=== PATIENT | male | born 1935 | race Caucasian/White ===

== ENCOUNTER 2024-08-21 07:41 | Inpatient (IN) | payer MEDICARE ==
--- NOTE | 2024-08-21 08:11 | ED ---
General Adult HPI - General Chief complaint: Nausea/Vomiting/Diarrhea Stated complaint: NV Time Seen by Provider: 08/21/24 07:46 Source: patient, EMS, RN notes reviewed Mode of arrival: EMS Limitations: no limitations - History of Present Illness Initial comments: 88-year-old male presents emergency department with chief complaint of nausea vomiting cough congestion. States that he just feels really weak rundown. Patient states this started after eating something and and he states he did drink some alcohol at that time. Patient denies any chest pain or palpitations denies any history of A-fib denies any localized abdominal pain states it is more when he coughs, it seems to bring some stuff up. - Related Data Home Medications Medication Instructions Recorded Confirmed Albuterol Inhaler [Ventolin Hfa 1 puff INHALATION RT-Q4H PRN 08/21/24 08/21/24 Inhaler] Aspirin [Cherry Aspirin EC] 81 mg PO DAILY 08/21/24 08/21/24 Atorvastatin [Lipitor] 40 mg PO DAILY@1200 08/21/24 08/21/24 Budesonide/Formoterol Fumarate 2 puff INHALATION RT-DAILY 08/21/24 08/21/24 [Symbicort 160-4.5 Mcg Inhaler] Docusate [Colace] 100 mg PO BID 08/21/24 08/21/24 Ferrous Sulfate [Feosol] 325 mg PO DAILY@1200 08/21/24 08/21/24 Gabapentin [Neurontin] 100 mg PO BID 08/21/24 08/21/24 Ketoconazole 2% Shampoo [Nizoral] 1 applic TOPICAL Q7D 08/21/24 08/21/24 Pantoprazole [Protonix] 40 mg PO DAILY 08/21/24 08/21/24 Triamcinolone 0.1% Cream [Kenalog 1 applicatio TOPICAL DIRECTED 08/21/24 08/21/24 0.1% Cream] PRN Urea Cream 40% 1 applic TOPICAL DAILY PRN 08/21/24 08/21/24 methocarbamoL [Robaxin] 500 mg PO BID 08/21/24 08/21/24 Allergies Allergy/AdvReac Type Severity Reaction Status Date / Time No Known Allergies Allergy Verified 08/21/24 10:16 Review of Systems ROS Statement: Those systems with pertinent positive or pertinent negative responses have been documented in the HPI. ROS Other: All systems not noted in ROS Statement are negative. Past Medical History Past Medical History: COPD, Dementia Additional Past Medical History / Comment(s): PAD, anemia History of Any Multi-Drug Resistant Organisms: None Reported Additional Past Surgical History / Comment(s): Right above the knee amputation Past Psychological History: No Psychological Hx Reported Smoking Status: Former smoker Past Alcohol Use History: Daily Past Drug Use History: None Reported General Exam Limitations: no limitations General appearance: alert, in no apparent distress Head exam: Present: atraumatic, normocephalic, normal inspection Eye exam: Present: normal appearance, PERRL, EOMI. Absent: scleral icterus, conjunctival injection, periorbital swelling ENT exam: Present: normal exam, mucous membranes moist Neck exam: Present: normal inspection. Absent: tenderness, meningismus, lymphadenopathy Respiratory exam: Present: normal lung sounds bilaterally. Absent: respiratory distress, wheezes, rales, rhonchi, stridor Cardiovascular Exam: Present: tachycardia, irregular rhythm, normal heart sounds. Absent: systolic murmur, diastolic murmur, rubs, gallop, clicks GI/Abdominal exam: Present: soft, normal bowel sounds. Absent: distended, tenderness, guarding, rebound, rigid Neurological exam: Present: alert Course Vital Signs 08/21/24 08/21/24 08/21/24 07:43 08:29 09:06 Temperature 97.3 F L Pulse Rate 137 H 120 H 130 H Respiratory 18 18 20 Rate Blood Pressure 102/87 106/87 127/96 O2 Sat by Pulse 94 L 96 95 Oximetry 08/21/24 09:16 Temperature Pulse Rate 84 Respiratory 20 Rate Blood Pressure 109/78 O2 Sat by Pulse 94 L Oximetry EKG Findings - EKG Comments: EKG Findings:: EKG performed at 8: 06 A-fib with RVR rate of 138 QRS 85 QT/QTc 293/374 - EKG Results: EKG: interpreted by JAMIL Medical Decision Making - Medical Decision Making Was pt. sent in by a medical professional or institution (, PA, PSYCHIATRIC NURSING AIDE, urgent care, hospital, or senior care...) When possible be specific @ -No Did you speak to anyone other than the patient for history (EMS, parent, family, police, friend...)? What history was obtained from this source @ -No Did you review nursing and triage notes (agree or disagree)? Why? @ -I reviewed and agree with nursing and triage notes Were old charts reviewed (outside hosp., previous admission, EMS record, old EKG, old radiological studies, urgent care reports/EKG's, senior care records)? Report findings @ -No old charts were reviewed Differential Diagnosis (chest pain, altered mental status, abdominal pain women, abdominal pain men, vaginal bleeding, weakness, fever, dyspnea, syncope, headache, dizziness, GI bleed, back pain, seizure, CVA, palpatations, mental health, musculoskeletal)? @ -Differential Dyspnea: Coronary syndrome, arrhythmia, tamponade, asthma, COPD, pulmonary embolism, pneumonia, pneumothorax, pulmonary effusion, anaphylaxis, diabetic ketoacidosis, flailed chest, pulmonary contusion, diaphragmatic rupture, anemia, neuromuscular, this is not meant to be an all-inclusive list. EKG interpreted by me (3pts min.). @ -As above X-rays interpreted by me (1pt min.). @ -Chest x-ray shows bilateral infiltrates and pleural effusion CT interpreted by me (1pt min.). @ -None done U/S interpreted by me (1pt. min.). @ -None done What testing was considered but not performed or refused? (CT, X-rays, U/S, labs )? Why? @ -None What meds were considered but not given or refused? Why? @ -None Did you discuss the management of the patient with other professionals (professionals i.e. , PA, PSYCHIATRIC NURSING AIDE, lab, RT, psych nurse, drug abuse social worker, quality auditor, teacher, psychological operations officer, piano case and bench assembler)? Give summary @ -Dr. Burris for admission Was smoking cessation discussed for >3mins.? @ -No Was critical care preformed (if so, how long)? @ -35 minutes Were there social determinants of health that impacted care today? How? (Ho melessness, low income, unemployed, alcoholism, drug addiction, transportation, low edu. Level, literacy, decrease access to med. care, usp, rehab)? @ -No Was there de-escalation of care discussed even if they declined (Discuss DNR or withdrawal of care, Hospice)? DNR status @ -No What co-morbidities impacted this encounter? (DM, HTN, Smoking, COPD, CAD, Cancer, CVA, ARF, Chemo, Hep., AIDS, mental health diagnosis, sleep apnea, morbid obesity)? @ -COPD Was patient admitted / discharged? Hospital course, mention meds given and route, prescriptions, significant lab abnormalities, going to OR and other pertinent info. @ -Admitted patient's found to be in A-fib RVR upon arrival patient was started on Cardizem, heparin. Patient heart rate is improving. He has bilateral pneumonia, bilateral pleural effusions. Patient will be admitted for IV antibiotics, cardiology evaluation. Undiagnosed new problem with uncertain prognosis? @ -No Drug Therapy requiring intensive monitoring for toxicity (Heparin, Nitro, Insulin, Cardizem)? @ -Cardizem, heparin Were any procedures done? @ -No Diagnosis/symptom? @ -Bilateral pneumonia, pleural effusion, A-fib RVR new onset Acute, or Chronic, or Acute on Chronic? @ -Acute Uncomplicated (without systemic symptoms) or Complicated (systemic symptoms)? @ -Complicated Side effects of treatment? @ -No Exacerbation, Progression, or Severe Exacerbation? @ -No Poses a threat to life or bodily function? How? (Chest pain, [place], [place], pneumonia, PE, COPD, DKA, ARF, appy, cholecystitis, CVA, Diverticulitis, Homicidal, Suicidal, threat to staff... and all critical care pts) @ -Yes pneumonia, pleural effusion, may lead to respiratory failure - Lab Data Result diagrams: 08/21/24 08:12 08/21/24 08:12 Lab Results 08/21/24 08/21/24 08/21/24 Range/Units 08:12 08:12 08:12 WBC 10.5 (3.8-10.6) k/uL RBC 5.55 (4.30-5.90) m/uL Hgb 15.9 (13.0-17.5) gm/dL Hct 52.4 (39.0-53.0) % MCV 94.4 (80.0-100.0) fL MCH 28.7 (25.0-35.0) pg MCHC 30.4 L (31.0-37.0) g/dL RDW 15.3 (11.5-15.5) % Plt Count 283 (150-450) k/uL MPV 7.0 Neutrophils % 91 % Lymphocytes % 3 % Monocytes % 4 % Eosinophils % 1 % Basophils % 0 % Neutrophils # 9.5 H (1.3-7.7) k/uL Lymphocytes # 0.4 L (1.0-4.8) k/uL Monocytes # 0.4 (0-1.0) k/uL Eosinophils # 0.1 (0-0.7) k/uL Basophils # 0.0 (0-0.2) k/uL Hypochromasia Marked PT 12.1 (10.0-12.5) sec INR 1.1 (<1.2) APTT 22.1 (22.0-30.0) sec Sodium 141 (137-145) mmol/L Potassium 4.3 (3.5-5.1) mmol/L Chloride 103 (98-107) mmol/L Carbon Dioxide 29 (22-30) mmol/L Anion Gap 9 mmol/L BUN 15 (9-20) mg/dL Creatinine 1.03 (0.66-1.25) mg/dL Est GFR (CKD-EPI)AfAm 75 (>60 ml/min/1.73 sqM) Est GFR (CKD-EPI)NonAf 65 (>60 ml/min/1.73 sqM) Glucose 124 H (74-99) mg/dL Calcium 9.8 (8.4-10.2) mg/dL Magnesium 1.9 (1.6-2.3) mg/dL Total Bilirubin 0.6 (0.2-1.3) mg/dL AST 22 (17-59) U/L ALT 12 (4-49) U/L Alkaline Phosphatase 133 H (38-126) U/L Troponin I (0.000-0.034) ng/mL Total Protein 6.6 (6.3-8.2) g/dL Albumin 3.9 (3.5-5.0) g/dL Lipase 123 (23-300) U/L Influenza Type A (PCR) (Not Detectd) Influenza Type B (PCR) (Not Detectd) RSV (PCR) (Not Detectd) SARS-CoV-2 (PCR) (Not Detectd) 08/21/24 08/21/24 Range/Units 08:12 08:12 WBC (3.8-10.6) k/uL RBC (4.30-5.90) m/uL Hgb (13.0-17.5) gm/dL Hct (39.0-53.0) % MCV (80.0-100.0) fL MCH (25.0-35.0) pg MCHC (31.0-37.0) g/dL RDW (11.5-15.5) % Plt Count (150-450) k/uL MPV Neutrophils % % Lymphocytes % % Monocytes % % Eosinophils % % Basophils % % Neutrophils # (1.3-7.7) k/uL Lymphocytes # (1.0-4.8) k/uL Monocytes # (0-1.0) k/uL Eosinophils # (0-0.7) k/uL Basophils # (0-0.2) k/uL Hypochromasia PT (10.0-12.5) sec INR (<1.2) APTT (22.0-30.0) sec Sodium (137-145) mmol/L Potassium (3.5-5.1) mmol/L Chloride (98-107) mmol/L Carbon Dioxide (22-30) mmol/L Anion Gap mmol/L BUN (9-20) mg/dL Creatinine (0.66-1.25) mg/dL Est GFR (CKD-EPI)AfAm (>60 ml/min/1.73 sqM) Est GFR (CKD-EPI)NonAf (>60 ml/min/1.73 sqM) Glucose (74-99) mg/dL Calcium (8.4-10.2) mg/dL Magnesium (1.6-2.3) mg/dL Total Bilirubin (0.2-1.3) mg/dL AST (17-59) U/L ALT (4-49) U/L Alkaline Phosphatase (38-126) U/L Troponin I <0.012 (0.000-0.034) ng/mL Total Protein (6.3-8.2) g/dL Albumin (3.5-5.0) g/dL Lipase (23-300) U/L Influenza Type A (PCR) Not Detected (Not Detectd) Influenza Type B (PCR) Not Detected (Not Detectd) RSV (PCR) Not Detected (Not Detectd) SARS-CoV-2 (PCR) Not Detected (Not Detectd) Critical Care Time Critical Care Time: Yes Total Critical Care Time: 35 Disposition Clinical Impression: New onset a-fib, Atrial fibrillation with RVR, Pneumonia, Pleural effusion Disposition: ADMITTED IP TO THIS HOSP Condition: Poor Referrals: None,Stated [Primary Care Provider] - 1-2 days Time of Disposition: 10:29
[2024-08-21 08:22] LABS: Basophils % (A) 0 %; Eosinophils # (A) 0.1 k/uL (0-0.7); Eosinophils % (A) 1 %; HCT 52.4 % (39.0-53.0); HGB 15.9 gm/dL (13.0-17.5); Hypochromasia Marked; Lymphocytes # (A) 0.4 k/uL (1.0-4.8); Lymphocytes % (A) 3 %; MCH 28.7 pg (25.0-35.0); MCHC 30.4 g/dL (31.0-37.0); MCV 94.4 fL (80.0-100.0); Monocytes # (A) 0.4 k/uL (0-1.0); Monocytes % (A) 4 %; Neutrophils # (A) 9.5 k/uL (1.3-7.7); Neutrophils % (A) 91 %; Platelet Count 283 k/uL (150-450); RBC 5.55 m/uL (4.30-5.90); RDW 15.3 % (11.5-15.5); WBC 10.5 k/uL (3.8-10.6)
[2024-08-21] MEDS: SODIUM CHLORIDE 0.9% 1,000 ML IV STA (08:28)
[2024-08-21 08:35] LABS: ALT 12 U/L (4-49); AST 22 U/L (17-59); African American GFR (CKD) 75 (>60 ml/min/1.73 sqM); Albumin 3.9 g/dL (3.5-5.0); Alkaline Phosphatase 133 U/L (38-126); Anion Gap 9 mmol/L; Blood Urea Nitrogen 15 mg/dL (9-20); Calcium 9.8 mg/dL (8.4-10.2); Carbon Dioxide 29 mmol/L (22-30); Chloride 103 mmol/L (98-107); Glucose 124 mg/dL (74-99); Lipase 123 U/L (23-300); Magnesium 1.9 mg/dL (1.6-2.3); Non-African American GFR(CKD) 65 (>60 ml/min/1.73 sqM); Potassium 4.3 mmol/L (3.5-5.1); Sodium 141 mmol/L (137-145); Total Bilirubin 0.6 mg/dL (0.2-1.3); Total Protein 6.6 g/dL (6.3-8.2)
[2024-08-21 08:51] LABS: INR 1.1 (<1.2); Partial Thromboplastin Time 22.1 sec (22.0-30.0); Prothrombin Time 12.1 sec (10.0-12.5)
--- NOTE | 2024-08-21 08:56 | XR ---
EXAMINATION TYPE: XR chest 2V DATE OF EXAM: 08/21/2024 COMPARISON: NONE TECHNIQUE: PA and lateral views submitted. HISTORY: Shortness of breath FINDINGS: Emphysematous changes with bilateral consolidation and small effusion. Mild cardiomegaly. Degenerativ e changes of the spine. Tortuosity and atherosclerotic change aorta. No pneumothorax. No overt failur e. IMPRESSION: 1. COPD with bilateral lower lobe infiltrate and small effusion. [facility], , 08/21/2024 8:54 AM
[2024-08-21] MEDS: DILTIAZEM DRIP BOLUS FROM BAG 1 MG SOLN IV ONE (09:13)
[2024-08-21] MEDS: DILTIAZEM 125 MG in SODIUM CHLORIDE 0.9% 100 ML IV SCH (09:15)
[2024-08-21] MEDS ORDERED: IPRATROPIUM-ALBUTEROL 3 ML NEB INHALATION PRN (10:29)
[2024-08-21] MEDS ORDERED: PNEUMONIA PROTOCOL UTILIZED 1 EACH MISC PO PRN (10:29)
[2024-08-21] MEDS: HEPARIN SODIUM 1,000 UN/ML (10ML VL) IV ONE (11:01)
[2024-08-21] MEDS: HEPARIN SOD,PORK IN 0.45% NACL 25,000 UNIT in 0.45% NACL 1 250ML.BAG IV SCH (11:11)
[2024-08-21] MEDS: AZITHROMYCIN 500 MG in SODIUM CHLORIDE 0.9% 250 ML IVPB STA (11:42)
[2024-08-21] MEDS: ONDANSETRON 4 MG/2 ML VIAL IVP PRN (12:06)
[2024-08-21] MEDS ORDERED: UREA 40% TOPICAL PRN (12:46)
[2024-08-21] MEDS: IPRATROPIUM-ALBUTEROL 3 ML NEB INHALATION SCH (15:30)
[2024-08-21] MEDS: GABAPENTIN 100 MG CAP PO SCH (19:28)
[2024-08-21] MEDS: DOCUSATE 100 MG CAP PO SCH (19:28)
[2024-08-21] MEDS: methocarbamoL 500 MG TAB PO SCH (19:44)
[2024-08-21] MEDS: HEPARIN SODIUM 1,000 UN/ML (10ML VL) IV PRN (19:44)
[2024-08-22 02:26] LABS: INR 1.1 (<1.2); Prothrombin Time 12.3 sec (10.0-12.5)
[2024-08-22 02:35] LABS: Basophils % (A) 0 %; Eosinophils % (A) 0 %; HCT 43.1 % (39.0-53.0); Hypochromasia Marked; Lymphocytes # (A) 0.5 k/uL (1.0-4.8); Lymphocytes % (A) 6 %; MCH 28.2 pg (25.0-35.0); MCHC 30.2 g/dL (31.0-37.0); MCV 93.6 fL (80.0-100.0); Mean Platelet Volume 7.1; Monocytes # (A) 0.6 k/uL (0-1.0); Monocytes % (A) 7 %; Neutrophils # (A) 7.5 k/uL (1.3-7.7); Neutrophils % (A) 86 %; Platelet Count 248 k/uL (150-450); RDW 15.4 % (11.5-15.5); WBC 8.8 k/uL (3.8-10.6)
--- NOTE | 2024-08-22 04:46 | HP ---
HISTORY AND PHYSICAL HISTORY OF PRESENT ILLNESS: An 88-year-old white male came to the hospital with nausea, vomiting, diarrhea, cough, congestion, and is feeling run down on and he had some drinking of alcohol at that time. Denies any chest pain or palpitation. He came in with atrial fibrillation with RVR. He has cough and some phlegm. HOME MEDICATIONS: 1. Ventolin HFA q.4 hours. 2. Aspirin 81 daily. 3. Lipitor 40 daily. 4. Symbicort inhaler was 64.5 two puffs b.i.d. 5. Ferrous sulfate 325 daily. 6. Neurontin 100 mg b.i.d. 7. Protonix 40 daily. 8. Kenalog and urea cream, Rovectin 500 b.i.d. for muscle spasms. ALLERGIES: No known drug allergies. REVIEW OF SYSTEMS: Fourteen-point review of systems is negative. PAST MEDICAL HISTORY: COPD, dementia, PAD, anemia, right above-knee amputation. SOCIAL HISTORY: He is a former smoker. Daily alcohol. PHYSICAL EXAMINATION: VITAL SIGNS: Temp 97.3, pulse is 120 to 137, blood pressure 102 to 127 over 80s to 90s, O2 saturation 94% to 96%. CARDIOVASCULAR: S1, S2. LUNGS: Transmitted upper sounds. HEMATOLOGY: Negative Homans. PSYCH: Fair mood and affect. NEUROLOGIC: Alert and oriented x3. OPHTHALMOLOGIC: Pupils equal, round, reactive. GENERAL: He is weak, fatigued, cachectic. LABORATORY DATA: Reviewed include hemoglobin is 15.9, sodium 141, potassium 4.3, CO2 of 29, creatinine 1.03, BUN is 15, GFR 65. IMPRESSION: New onset atrial fibrillation, rapid ventricular response, pneumonia, perfusion. Positive D-dimer. Order CT of the chest. Treat for antibiotics for pneumonia due to breathing treatments. Prognosis guarded. MMODL / IJN: [id number] /
--- NOTE | 2024-08-22 06:23 | CT ---
EXAMINATION TYPE: CT angio chest CT DLP: 294.1 mGycm, Automated exposure control for dose reduction was used. DATE OF EXAM: 08/21/2024 9:03 PM COMPARISON: CLINICAL INDICATION:Male, 88 years old with history of elevated D Dimer ro PE; High Dimer TECHNIQUE/CONTRAST: CTA scan of the thorax is performed with IV Contrast, patient injected with 100 mL of Isovue 370, MIP images are created and reviewed these are created on a separate workstation.. FINDINGS: There is adequate contrast bolus and timing. PULMONARY ARTERIES: There is no evidence for a filling defect within the pulmonary vasculature to sug gest acute pulmonary embolism. Pulmonary trunk is normal in size. Trunk measures 2.5 CM. AORTA: Moderate to heavy calcification of the aortic valve. Moderate to heavy mixed soft and calcifi ed aortic plaque, greatest along the mid to distal arch. No dissection flap is seen. There is plaque involvement of the branch vessels along the arch without hemodynamically significant stenosis seen. HEART: Mildly to moderately enlarged.. Mild calcification mitral valve. Moderate calcification throug hout the coronary arteries. No appreciable pericardial effusion. LOWER NECK: No significant findings. No sizable thyroid nodule seen. MEDIASTINUM: No enlarged nodes by CT size criteria. SOFT TISSUES/AXILLA: Unremarkable soft tissues. No axillary adenopathy. LUNGS/ PLEURA: Moderate sized bilateral pleural effusions with adjacent consolidative opacities. Circ ular calcific focus noted along the dome of the diaphragm on the right. No pneumothorax is seen. AIRWAY: Central airways are patent. Mild secretion from flora into left mainstem bronchus. MUSCULOSKELETAL: No acute osseous abnormality. Moderate disc degeneration changes are present throug hout the included thoracolumbar spine. UPPER ABDOMEN: No acute abnormality. Partially seen fluid distention of the stomach. Right renal hypo densities, likely cysts. Heavy atherosclerotic disease of the abdominal aorta with moderate to potent ially severe stenoses of the celiac, superior mesenteric, and renal arteries. IMPRESSION: 1. No evidence of pulmonary embolism. 2. Cardiomegaly with moderate bilateral pleural effusions, likely related to CHF. 3. Adjacent pulmonary opacities could be due to edema and atelectasis, with infection possible the page hospitaler clinical setting. 4. Other chronic and likely incidental findings, as described above. [facility], , 08/22/2024 6:21 AM
--- NOTE | 2024-08-22 08:07 | XR ---
EXAMINATION TYPE: XR chest 1V portable DATE OF EXAM: 08/22/2024 7:25 AM CLINICAL INDICATION: Male, 88 years old with history of pneumonia; [facility] COMPARISON: Chest radiograph from one day prior. TECHNIQUE: XR chest 1V portable Frontal view of the chest. FINDINGS: Lungs/Pleura: No evidence of focal consolidation or pneumothorax. Blunting of the costophrenic angles is present. Pulmonary vascularity: Unremarkable. Heart/mediastinum: Cardiomediastinal silhouette is unremarkable. Musculoskeletal: No acute osseous pathology. IMPRESSION: Small bilateral pleural effusions with associated atelectasis. [facility], , 08/22/2024 8:04 AM
[2024-08-22] MEDS ORDERED: ASPIRIN 81 MG PO SCH (09:00)
[2024-08-22] MEDS: PANTOPRAZOLE 40 MG TABLET PO SCH (09:30)
[2024-08-22] MEDS: APIXABAN 2.5 MG TABLET PO SCH (09:30)
[2024-08-22] MEDS: METOPROLOL TARTRATE 25 MG TAB PO SCH (09:30)
[2024-08-22] MEDS: FUROSEMIDE 10 MG/ML 4 ML VIAL IV SCH (09:31)
[2024-08-22 10:02] LABS: NT-Pro-B-Type Natriuretic Pept 3100 pg/mL
[2024-08-22] MEDS: AZITHROMYCIN 500 MG in SODIUM CHLORIDE 0.9% 250 ML IVPB SCH (10:21)
--- NOTE | 2024-08-22 10:27 | P.CRDCN ---
History of Present Illness History of present illness: HISTORY OF PRESENT ILLNESS: This is a 88-year-old male with a past medical history significant for peripheral arterial disease, right AKA, hyperlipidemia, and dementia. 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 We have been asked to see the patient in consultation for new onset A-fib. Patient examined at the bedside. Patient is somewhat confused at the time of examination. There is no family present to assist with history. The patient is not exactly sure why he came to the [facility]. At the time of examination, the patient denies any chest pain or pressure. He denies any shortness of breath. Vital signs are stable. Patient was found to be in atrial fibrillation with RVR. Patient denies a history of atrial fibrillation. He denied feeling any palpitations. Patient was started on IV heparin and IV Cardizem. At the time of examination, the patient remains in atrial fibrillation with a heart rate in the 80s. DIAGNOSTICS: - EKG reveals atrial fibrillation with RVR - Chest CTA: Negative for pulmonary embolism. Cardiomegaly with moderate bilateral pleural effusions, adjacent pulmonary opacities could be to edema and atelectasis - Chest xray small bilateral pleural effusions with associated atelectasis - Laboratory data: WBC 8.8. Hemoglobin 13.0. Platelet count 248. D-dimer 6.13. Sodium 141. Potassium 4.3. BUN 15. Creatinine 1.03. Troponin negative x 1. proBNP 3100. - Current home cardiac medications include aspirin 81 mg daily and atorvastatin 40 mg daily - No previous echocardiogram, cardiac catheterization, or stress test available in EMR for review REVIEW OF SYSTEMS: At the time of my exam: CONSTITUTIONAL: Denies fever or chills. HEENT: Denies blurred vision, vision changes, or eye pain. Denies hemoptysis CARDIOVASCULAR: Denies chest pain. Denies orthopnea. Denies PND. Denies palpitations RESPIRATORY: Denies shortness of breath. GASTROINTESTINAL: Denies abdominal pain. Denies nausea or vomiting. HEMATOLOGIC: Denies bleeding disorders. GENITOURINARY: Denies any blood in urine. SKIN: Denies pruitis. Denies rash. PHYSICAL EXAM: VITAL SIGNS: Reviewed. GENERAL: Well-developed in no acute distress. HEENT: Head is normocephalic. Pupils are equal, round. Sclerae anicteric. Mucous membranes of the mouth are moist. Neck supple. No JVD or thyromegaly LUNGS: Respirations even and unlabored. Lungs essentially clear to auscultation bilaterally. HEART: Irregular rate and rhythm. S1 and S2 heard. ABDOMEN: Soft. Nondistended. Nontender. EXTREMITIES: Normal range of motion. No clubbing or cyanosis. Right AKA. NEUROLOGIC: Awake and alert. ASSESSMENT: New onset atrial fibrillation with RVR Moderate bilateral pleural effusions, per CTA Peripheral arterial disease with previous right AKA Hyperlipidemia History of dementia PLAN: Obtain 2D echo to assess cardiac structure and function Check TSH Discontinue IV Cardizem and IV heparin Begin Eliquis 2.5 mg twice a day Begin metoprolol 25 mg twice a day Begin Lasix 40 mg IV every 12 hours for 24 hours Daily weights, accurate intake and output, and monitoring of kidney function Continue telemetry monitoring Further recommendations pending patient course Patient to follow-up postdischarge with Dr. Chaudhari Nurse practitioner note has been reviewed by physician. Signing provider agrees with the documented findings, assessment, and plan of care documented by POWDER LINE REPAIRER as a scribe. Past Medical History Past Medical History: COPD, Dementia Additional Past Medical History / Comment(s): PAD, anemia History of Any Multi-Drug Resistant Organisms: None Reported Additional Past Surgical History / Comment(s): Right above the knee amputation Past Psychological History: No Psychological Hx Reported Smoking Status: Former smoker Past Alcohol Use History: Daily Past Drug Use History: None Reported Medications and Allergies Home Medications Medication Instructions Recorded Confirmed Type Albuterol Inhaler [Ventolin Hfa 1 puff INHALATION RT-Q4H PRN 08/21/24 08/21/24 History Inhaler] Aspirin [Winston Aspirin EC] 81 mg PO DAILY 08/21/24 08/21/24 History Atorvastatin [Lipitor] 40 mg PO DAILY@1200 08/21/24 08/21/24 History Budesonide/Formoterol Fumarate 2 puff INHALATION RT-DAILY 08/21/24 08/21/24 His tory [Symbicort 160-4.5 Mcg Inhaler] Docusate [Colace] 100 mg PO BID 08/21/24 08/21/24 History Ferrous Sulfate [Feosol] 325 mg PO DAILY@1200 08/21/24 08/21/24 History Gabapentin [Neurontin] 100 mg PO BID 08/21/24 08/21/24 History Ketoconazole 2% Shampoo [Nizoral] 1 applic TOPICAL Q7D 08/21/24 08/21/24 History Pantoprazole [Protonix] 40 mg PO DAILY 08/21/24 08/21/24 History Triamcinolone 0.1% Cream [Kenalog 1 applicatio TOPICAL DIRECTED 08/21/24 08/21/24 History 0.1% Cream] PRN Urea Cream 40% 1 applic TOPICAL DAILY PRN 08/21/24 08/21/24 History methocarbamoL [Robaxin] 500 mg PO BID 08/21/24 08/21/24 History Allergies Allergy/AdvReac Type Severity Reaction Status Date / Time No Known Allergies Allergy Verified 08/21/24 10:16 Physical Exam Vitals: Vital Signs Temp Pulse Pulse Pulse Resp BP BP 08/22/24 08:34 96 08/22/24 08:19 97.6 F 96 89 18 128/79 08/22/24 04:20 98.4 F 62 18 130/80 08/21/24 23:08 98.5 F 97 18 08/21/24 20:00 97.5 F L 88 18 08/21/24 19:46 89 08/21/24 19:39 88 08/21/24 15:58 98.0 F 78 16 134/81 08/21/24 15:18 97.6 F 85 18 138/85 08/21/24 12:31 87 20 119/68 08/21/24 11:35 85 20 113/60 08/21/24 10:54 82 18 128/80 BP Pulse Ox 08/22/24 08:34 08/22/24 08:19 94 L 08/22/24 04:20 95 08/21/24 23:08 127/82 96 08/21/24 20:00 137/73 94 L 08/21/24 19:46 08/21/24 19:39 08/21/24 15:58 96 08/21/24 15:18 98 08/21/24 12:31 94 L 08/21/24 11:35 93 L 08/21/24 10:54 93 L Intake and Output 08/21/24 08/22/24 08/22/24 22:59 06:59 14:59 Intake Total 183.957 94.083 160 Output Total 240 Balance 183.957 -145.917 160 Intake: IV 10 10 Invasive Line 1 10 Invasive Line 2 10 Intake, IV Titration 55.957 94.083 Amount Diltiazem 125 mg In 94.083 Sodium Chloride 0.9% 100 ml @ 5 MG/HR 5 mls/hr IV .Q24H [facility] Rx#:[id number] Heparin Sod,Pork in 0.45% 55.957 NaCl 25,000 unit In 0.45 % NaCl 1 250ml.bag @ 12 UNITS/KG/HR 6.532 mls/hr IV .Q24H [facility] Rx#: [id number] Oral 118 150 Output: Urine 240 Straight 240 Other: Voiding Method Urinal Urinal # Voids 0 Weight 54.5 kg Results 08/22/24 01:41 08/21/24 08:12 Coagulation 08/21/24 08/22/24 08/22/24 Range/Units 16:53 01:41 01:41 PT 12.3 (10.0-12.5) sec APTT 31.4 H 59.6 H (22.0-30.0) sec CBC 08/22/24 Range/Units 01:41 WBC 8.8 (3.8-10.6) k/uL RBC 4.60 (4.30-5.90) m/uL Hgb 13.0 (13.0-17.5) gm/dL Hct 43.1 (39.0-53.0) % Plt Count 248 (150-450) k/uL Current Medications Generic Name Dose Route Start Last Admin Trade Name Freq PRN Reason Stop Dose Admin Albuterol/Ipratropium 3 ml 08/21/24 10:29 Ipratropium-Albuterol 3 Ml Neb INHALATION RT-Q4H PRN shortness of breath Albuterol/Ipratropium 3 ml 08/21/24 16:00 08/22/24 08:19 Ipratropium-Albuterol 3 Ml Neb INHALATION 3 ml RT-QID [facility] Administration Apixaban 2.5 mg 08/22/24 09:00 08/22/24 09:30 Apixaban 2.5 Mg Tablet PO 2.5 mg BID [facility] Administration Protocol Atorvastatin Calcium 40 mg 08/22/24 12:00 Atorvastatin 40 Mg Tab PO DAILY@1200 [facility] Docusate Sodium 100 mg 08/21/24 21:00 08/22/24 09:30 Docusate 100 Mg Cap PO 100 mg BID [facility] Administration Ferrous Sulfate 325 mg 08/22/24 12:00 Ferrous Sulfate 325 Mg Tab PO DAILY@1200 [facility] Furosemide 40 mg 08/22/24 09:00 08/22/24 09:31 Furosemide 10 Mg/Ml 4 Ml Vial IV 40 mg Q12HR [facility] Administration Gabapentin 100 mg 08/21/24 21:00 08/22/24 09:31 Gabapentin 100 Mg Cap PO 100 mg BID [facility] Administration Ceftriaxone Sodium 2 gm/ 50 mls @ 100 mls/hr 08/22/24 09:00 08/22/24 09:32 Sodium Chloride IVPB 08/25/24 09:29 100 mls/hr Q24HR [facility] Administration Protocol Azithromycin 500 mg/ Sodium 250 mls @ 250 mls/hr 08/22/24 09:00 Chloride IVPB 08/23/24 09:59 DAILY [facility] Protocol Methocarbamol 500 mg 08/21/24 21:00 08/22/24 09:30 Methocarbamol 500 Mg Tab PO 500 mg BID [facility] Administration Metoprolol Tartrate 25 mg 08/22/24 09:00 08/22/24 09:30 Metoprolol Tartrate 25 Mg Tab PO 25 mg BID [facility] Administration Miscellaneous Information 1 each 08/21/24 10:29 Pneumonia Protocol Utilized 1 Each Misc PO ONCE PRN Per Protocol Patient's Own (Urea 1 applic 08/21/24 12:46 Cream 40% 1 Applic) TOPICAL DAILY PRN Itching Ondansetron HCl 4 mg 08/21/24 12:01 08/21/24 12:06 Ondansetron 4 Mg/2 Ml Vial IVP 4 mg Q6HR PRN Administration Nausea And Vomiting Pantoprazole Sodium 40 mg 08/22/24 09:00 08/22/24 09:30 Pantoprazole 40 Mg Tablet PO 40 mg DAILY [facility] Administration Intake and Output 08/21/24 08/22/24 08/22/24 22:59 06:59 14:59 Intake Total 183.957 94.083 160 Output Total 240 Balance 183.957 -145.917 160 Intake: IV 10 10 Invasive Line 1 10 Invasive Line 2 10 Intake, IV Titration 55.957 94.083 Amount Diltiazem 125 mg In 94.083 Sodium Chloride 0.9% 100 ml @ 5 MG/HR 5 mls/hr IV .Q24H [facility] Rx#:[id number] Heparin Sod,Pork in 0.45% 55.957 NaCl 25,000 unit In 0.45 % NaCl 1 250ml.bag @ 12 UNITS/KG/HR 6.532 mls/hr IV .Q24H [facility] Rx#: [id number] Oral 118 150 Output: Urine 240 Straight 240 Other: Voiding Method Urinal Urinal # Voids 0 Weight 54.5 kg 08/22/24 01:41 08/21/24 08:12
--- NOTE | 2024-08-22 10:37 | CDI ---
Documentation Clarification Form Date: 08/21/2024 From: Charlene Carranza RN CCDS Phone: [phone] Admit Date: 08/21/2024 11:40:00 AM Patient Name: Daniel Ortiz Visit Number: [id number] Discharge Date: ATTENTION: The Clinical Documentation Specialists (CDI) and [facility] Coding Staff appreciate your assistance in clarifying documentation. Please respond to the clarification below the line at the bottom and electronically sign. The CDI & [facility] Coding staff will review the response and follow-up if needed. Please note: Queries are made part of the Legal Health Record. If you have any questions, please contact the author of this message via ITS. Doctor/Provider: Jerel Burris MD: Patient has a documented BMI of 16.3 on 08/21. Additional clarification is requested. History/Risk Factors: 88-year-old male with a history of COPD, Dementia, PAD, Anemia and right above knee amputation who presents with nausea, vomiting, diarrhea cough and congestion Clinical Indicators: 08/21 Patients weight is 54.5 kg Patients height is 6ft Calculated BMI is 16.4 08/21 Total Protein: 6.6 Treatments: Healthy Heart Diet Feosol 325mg oral daily start 08/22 Please clarify, is there is an additional diagnosis that is clinically appropriate for this patient? [ ] Underweight [ ] No additional diagnosis/not clinically significant [ ] Other, please specify [ ] Unable to determine MTDD
[2024-08-22] MEDS: FERROUS SULFATE 325 MG TAB PO SCH (11:56)
[2024-08-22] MEDS: ATORVASTATIN 40 MG TAB PO SCH (11:56)
--- NOTE | 2024-08-22 13:38 | P.CNPUL ---
History of Present Illness Consult date: 08/22/24 Reason for consult: dyspnea, cough, COPD, pneumonia Chief complaint: Cough and shortness of breath History of present illness: 88-year-old male data predominantly obtained from the payroll specialist present at bedside and patient, patient is s/p right AKA for chronic infection, patient has mild dementia, patient lives by himself at home takes care of adult daily life activities, longstanding history of cough congestion is present but however got worse with nausea and vomiting and congestion, patient was extremely tired fat igue and exhausted appetite has been poor and not tolerating very well. His past medical history significant for metastatic prostate cancer sees Dr. Gomes with conservative management, COPD, dyslipidemia, chronic anemia, neuropathy, GERD, chronic anemia, peripheral arterial disease. Patient is a every day smoker but quit in the remote past he used to smoke very heavily however is admitted chest x-ray significant for bilateral lower lobe infiltrate and small effusion CT scan of the chest negative for pulmonary embolism cardiomegaly interstitial edema bilateral pleural effusion, adjacent opacities cardiology has been consulted labs are significant for influenza A and B-, RSV as well as COVID negative as well. BNP is 3100, chemistry fairly within normal limit D-dimer elevated 6.13 CBC within normal limit patient on IV heparin due to A-fib RVR new onset Review of Systems All systems: negative Past Medical History Past Medical History: COPD, Dementia Additional Past Medical History / Comment(s): PAD, anemia History of Any Multi-Drug Resistant Organisms: None Reported Additional Past Surgical History / Comment(s): Right above the knee amputation Past Psychological History: No Psychological Hx Reported Smoking Status: Former smoker Past Alcohol Use History: Daily Past Drug Use History: None Reported Medications and Allergies Home Medications Medication Instructions Recorded Confirmed Type Albuterol Inhaler [Ventolin Hfa 1 puff INHALATION RT-Q4H PRN 08/21/24 08/21/24 History Inhaler] Aspirin [Kappa Aspirin EC] 81 mg PO DAILY 08/21/24 08/21/24 History Atorvastatin [Lipitor] 40 mg PO DAILY@1200 08/21/24 08/21/24 History Budesonide/Formoterol Fumarate 2 puff INHALATION RT-DAILY 08/21/24 08/21/24 History [Symbicort 160-4.5 Mcg Inhaler] Docusate [Colace] 100 mg PO BID 08/21/24 08/21/24 History Ferrous Sulfate [Feosol] 325 mg PO DAILY@1200 08/21/24 08/21/24 History Gabapentin [Neurontin] 100 mg PO BID 08/21/24 08/21/24 History Ketoconazole 2% Shampoo [Nizoral] 1 applic TOPICAL Q7D 08/21/24 08/21/24 History Pantoprazole [Protonix] 40 mg PO DAILY 08/21/24 08/21/24 History Triamcinolone 0.1% Cream [Kenalog 1 applicatio TOPICAL DIRECTED 08/21/24 08/21/24 History 0.1% Cream] PRN Urea Cream 40% 1 applic TOPICAL DAILY PRN 08/21/24 08/21/24 History methocarbamoL [Robaxin] 500 mg PO BID 08/21/24 08/21/24 History Allergies Allergy/AdvReac Type Severity Reaction Status Date / Time No Known Allergies Allergy Verified 08/21/24 10:16 Physical Exam Vitals: Vital Signs Temp Pulse Pulse Pulse Resp BP BP 08/22/24 12:38 88 08/22/24 12:31 92 08/22/24 11:23 98.1 F 56 L 18 113/72 08/22/24 08:34 96 08/22/24 08:19 97.6 F 96 89 18 128/79 08/22/24 04:20 98.4 F 62 18 130/80 08/21/24 23:08 98.5 F 97 18 08/21/24 20:00 97.5 F L 88 18 08/21/24 19:46 89 08/21/24 19:39 88 08/21/24 15:58 98.0 F 78 16 134/81 08/21/24 15:18 97.6 F 85 18 138/85 BP Pulse Ox 08/22/24 12:38 08/22/24 12:31 08/22/24 11:23 95 08/22/24 08:34 08/22/24 08:19 94 L 08/22/24 04:20 95 08/21/24 23:08 127/82 96 08/21/24 20:00 137/73 94 L 08/21/24 19:46 08/21/24 19:39 08/21/24 15:58 96 08/21/24 15:18 98 Intake and Output 08/21/24 08/22/24 08/22/24 22:59 06:59 14:59 Intake Total 183.957 94.083 160 Output Total 240 300 Balance 183.957 -145.917 -140 Intake: IV 10 10 Invasive Line 1 10 Invasive Line 2 10 Intake, IV Titration 55.957 94.083 Amount Diltiazem 125 mg In 94.083 Sodium Chloride 0.9% 100 ml @ 5 MG/HR 5 mls/hr IV .Q24H [facility] Rx#:[id number] Heparin Sod,Pork in 0.45% 55.957 NaCl 25,000 unit In 0.45 % NaCl 1 250ml.bag @ 12 UNITS/KG/HR 6.532 mls/hr IV .Q24H [facility] Rx#: [id number] Oral 118 150 Output: Urine 240 300 Straight 240 Other: Voiding Method Urinal Urinal Urinal # Voids 0 Weight 54.5 kg - Constitutional General appearance: average body habitus, disheveled - EENT Eyes: EOMI, PERRLA ENT: normal oropharynx Ears: bilateral: normal - Neck Carotids: bilateral: upstroke normal - Respiratory Respiratory: bilateral: diminished, dullness, rales - Cardiovascular Rhythm: irregularly irregular Heart sounds: normal: S1, S2 - Neurologic Neurologic: CNII-XII intact - Musculoskeletal Musculoskeletal: gait normal, generalized weakness, strength equal bilaterally - Psychiatric Psychiatric: A&O x's 3, appropriate affect Results - Laboratory Findings CBC and BMP: 08/22/24 01:41 08/21/24 08:12 PT/INR, D-dimer PT 12.3 sec (10.0-12.5) 08/22/24 01:41 INR 1.1 (<1.2) 08/22/24 01:41 D-Dimer 6.13 mg/L FEU (<0.60) H 08/21/24 12:55 Abnormal lab findings: Abnormal Labs 08/21/24 08/21/24 08/21/24 08:12 08:12 12:55 MCHC 30.4 L Neutrophils # 9.5 H Lymphocytes # 0.4 L APTT D-Dimer 6.13 H Glucose 124 H Alkaline Phosphatase 133 H 08/21/24 08/22/24 08/22/24 16:53 01:41 01:41 MCHC 30.2 L Neutrophils # Lymphocytes # 0.5 L APTT 31.4 H 59.6 H D-Dimer Glucose Alkaline Phosphatase - Diagnostic Findings Chest x-ray: report reviewed, image reviewed CT scan - chest: report reviewed (Findings as noted above), image reviewed Assessment and Plan Assessment: Bilateral basal pneumonia Bilateral pleural effusion likely combination of pneumonia as well as predominantly congestive heart failure Acute hypoxic respiratory failure Acute exacerbation of congestive heart failure Likely acute on chronic diastolic heart failure New onset atrial fibrillation COPD Plan: Continue broad-spectrum antibiotics with Zithromax as well as Rocephin Follow-up oxygenation as well as radiographic studies and clinical parameters Continue bronchodilator hold on IV steroid Patient is on IV heparin for new onset atrial fibrillation. States being converted to direct oral anticoagulant Echocardiogram pending Gentle diuresis Further plan of care as per clinical response with the patient Time with Patient: Greater than 30
--- NOTE | 2024-08-22 14:21 | CA ---
Transthoracic Echo Report Name: Daniel Ortiz Age: 88 Gender: M : 1935 Exam Date: 08/21/2024 14:07 Exam Location: [place] [facility] Ht (in): 72 Wt (lb): 120 Ordering Physician: Jerel Burris MD Attending/Referring Phys: Gang Leader Andree Thornton RDCS Procedure CPT: Indications: CAD Cardiac Hx: Technical Quality: Technically difficult study Contrast 1: Definity Total Dose (mL): 2 Contrast 2: Total Dose (mL): MEASUREMENTS (Male / Female) Normal Values 2D ECHO LV Diastolic Diameter PLAX 3.2 cm 4.2 - 5.9 / 3.9 - 5.3 cm LV Systolic Diameter PLAX 2.9 cm IVS Diastolic Thickness 1.0 cm 0.6 - 1.0 / 0.6 - 0.9 cm LVPW Diastolic Thickness 1.1 cm 0.6 - 1.0 / 0.6 - 0.9 cm LV Relative Wall Thickness 0.6 RV Internal Dim ED PLAX 3.1 cm LVOT Diameter 1.8 cm LA Systolic Diameter LX 3.4 cm 3.0 - 4.0 / 2.7 - 3.8 cm LA Volume 76.1 cm??? 18 - 58 / 22 - 52 cm??? LA Volume Index 46.4 cm???/m??? 16 - 28 cm???/m??? M-MODE Aortic Root Diameter MM 3.3 cm AV Cusp Separation MM 1.9 cm DOPPLER AV Peak Velocity 346.6 cm/s AV Peak Gradient 48.1 mmHg AV Mean Velocity 250.5 cm/s AV Mean Gradient 28.1 mmHg AV Velocity Time Integral 88.3 cm LVOT Peak Velocity 66.0 cm/s LVOT Peak Gradient 1.7 mmHg LVOT Velocity Time Integral 15.7 cm LVOT Stroke Volume 41.6 cm??? LVOT Stroke Volume Index 24.3 ml/m??? LVOT Cardiac Index 2206.6 cm???/min???m??? AV Area Cont Eq vti 0.5 cm??? AV Area Cont Eq pk 0.5 cm??? MV Area PHT 4.2 cm??? MV Deceleration Time 216.0 ms TR Peak Velocity 297.6 cm/s TR Peak Gradient 35.4 mmHg Right Ventricular Systolic Press 40.4 mmHg FINDINGS Left Ventricle Left ventricular ejection fraction is estimated at 40-45 %. Small left ventricular cavity. Left ventricular wall thickness normal. Mildly reduced global left ventricular systolic function. Right Ventricle Normal right ventricular size and function. Mild pulmonary hypertension. Right Atrium Severe right atrial dilatation. Left Atrium Moderately increased left atrial volume. Mildly increased left atrial area. Mitral Valve Mitral valve thickened. Mild mitral annular calcification. Mild mitral annular calcification. Aortic Valve Aortic valve sclerosis. Moderate to severe aortic stenosis with a peak gradient of 48 mmHg and a mean gradient of 28 mmHg. Tricuspid Valve Structurally normal tricuspid valve. Mild to moderate tricuspid regurgitation. Pulmonic Valve Pulmonic valve not well visualized. Pericardium No pericardial or pleural effusion. Aorta Normal size aortic root and proximal ascending aorta. 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 Consider SERVANDO or low dose dobutamine stress echo if clinically indicated Mild to moderate tricuspid regurgitation Previewed by: Dr. Clayton Castillo DO (Electronically Signed) Final Date: 22 August 2024 14:20
[2024-08-23 06:50] LABS: African American GFR (CKD) 89 (>60 ml/min/1.73 sqM); Anion Gap 6 mmol/L; Blood Urea Nitrogen 19 mg/dL (9-20); Calcium 9.2 mg/dL (8.4-10.2); Carbon Dioxide 29 mmol/L (22-30); Chloride 103 mmol/L (98-107); Glucose 87 mg/dL (74-99); Non-African American GFR(CKD) 77 (>60 ml/min/1.73 sqM); Potassium 3.4 mmol/L (3.5-5.1); Sodium 138 mmol/L (137-145)
[2024-08-23 08:55] LABS: Appearance,Urine Clear (Clear); Bacteria,Urine Rare /hpf; Bilirubin,Urine Negative (Negative); Blood,Urine Large (Negative); Color,Urine Light Yellow; Glucose,Urine (UA) Negative (Negative); Hyaline Casts,Urine 9 /lpf (0-2); Ketones,Urine Negative (Negative); Leukocyte Esterase,Urine Negative (Negative); Mucus,Urine Rare /hpf; Nitrite,Urine Negative (Negative); Protein,Urine Negative (Negative); RBC,Urine >182 /hpf (0-5); Specific Gravity,Urine 1.016 (1.001-1.035); Urobilinogen,Urine <2.0 mg/dL (<2.0); WBC,Urine 4 /hpf (0-5)
--- NOTE | 2024-08-23 10:16 | P.PN ---
Subjective HISTORY OF PRESENT ILLNESS: This is a 88-year-old male with a past medical history significant for peripheral arterial disease, right AKA, hyperlipidemia, and dementia. Patient does not follow with a voice over artist. We have been asked to see the patient in consultation for new onset A-fib. Patient examined at the bedside. Patient is somewhat confused at the time of examination. There is no family present to assist with history. The patient is not exactly sure why he came to the hospital. At the time of examination, the patient denies any chest pain or pressure. He denies any shortness of breath. Vital signs are stable. Patient was found to be in atrial fibrillation with RVR. Patient denies a history of atrial fibrillation. He denied feeling any palpitations. Patient was started on IV heparin and IV Cardizem. At the time of examination, the patient remains in atrial fibrillation with a heart rate in the 80s. DIAGNOSTICS: - EKG reveals atrial fibrillation with RVR - Chest CTA: Negative for pulmonary embolism. Cardiomegaly with moderate bilateral pleural effusions, adjacent pulmonary opacities could be to edema and atelectasis - Chest xray small bilateral pleural effusions with associated atelectasis - Laboratory data: WBC 8.8. Hemoglobin 13.0. Platelet count 248. D-dimer 6.13. Sodium 141. Potassium 4.3. BUN 15. Creatinine 1.03. Troponin negative x 1. proBNP 3100. - Current home cardiac medications include aspirin 81 mg daily and atorvastatin 40 mg daily - No previous echocardiogram, cardiac catheterization, or stress test available in EMR for review 08/23/2024 Patient examined this morning at the bedside. Patient currently denies chest pain or pressure. He denies shortness of breath. He remains in atrial fibrillation with heart rates in the 90s. Blood pressure 98/60. Echocardiogram completed revealing ejection fraction 40 to 45%, mild pulmonary hypertension, and moderate to severe aortic stenosis, mild to moderate tricuspid regurgitation PHYSICAL EXAM: VITAL SIGNS: Reviewed. GENERAL: Well-developed in no acute distress. HEENT: Head is normocephalic. Pupils are equal, round. Sclerae anicteric. Mucous membranes of the mouth are moist. Neck supple. No JVD or thyromegaly LUNGS: Respirations even and unlabored. Lungs essentially clear to auscultation bilaterally. HEART: Irregular rate and rhythm. S1 and S2 heard. Systolic murmur noted ABDOMEN: Soft. Nondistended. Nontender. EXTREMITIES: Normal range of motion. No clubbing or cyanosis. Right AKA. NEUROLOGIC: Awake and alert. 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 Begin oral Lasix 20 mg daily Increase metoprolol to 25 mg 3 times a day for optimal heart rate control Continue additional cardiac medications Continue telemetry monitoring Further recommendations pending patient course Patient to follow-up postdischarge with Dr. Chaudhari Nurse practitioner note has been reviewed by physician. Signing provider agrees with the documented findings, assessment, and plan of care documented by JOWL TRIMMER as a scribe. Objective - Vital Signs Vital signs: Vital Signs Temp 98.1 F 08/23/24 08:11 Pulse 64 08/23/24 08:20 Resp 16 08/23/24 08:20 BP 98/60 08/23/24 08:11 Pulse Ox 95 08/23/24 08:11 FiO2 Intake & Output 08/22/24 08/23/24 08/23/24 18:59 06:59 18:59 Intake Total 470 20 190 Output Total 1300 975 300 Balance -830 -955 -110 Weight 50.5 kg Intake: IV 20 20 10 Invasive Line 2 20 20 10 Oral 450 180 Output: Urine 1300 975 300 Other: Voiding Method Urinal Urinal Urinal # Voids 1 # Bowel Movements 1 - Labs CBC & Chem 7: 08/22/24 01:41 08/23/24 05:52 Labs: Abnormal Lab Results - Last 24 Hours (Table) 08/23/24 08/23/24 Range/Units 05:52 06:00 Potassium 3.4 L (3.5-5.1) mmol/L Urine Blood Large H (Negative) Urine RBC >182 H (0-5) /hpf Urine Bacteria Rare H (None) /hpf Hyaline Casts 9 H (0-2) /lpf Urine Mucus Rare H (None) /hpf Microbiology - Last 24 Hours (Table) 08/21/24 10:33 Blood Culture - Preliminary Blood
--- NOTE | 2024-08-23 11:04 | P.PN ---
Subjective Progress Note Date: 08/23/24 Principal diagnosis: Congestive heart failure likely acute on chronic systolic and diastolic heart failure echocardiogram reveals ejection fraction 40% Mild pulmonary hypertension group 2 and 3 Hypokalemia Bilateral basal pneumonia Bilateral pleural effusion likely combination of pneumonia as well as predominantly congestive heart failure Acute hypoxic respiratory failure Acute exacerbation of congestive heart failure Likely acute on chronic diastolic heart failure New onset atrial fibrillation COPD August 23, 2024, patient seen eval examined during rounds labs reviewed medications reviewed care plan discussed, ongoing cough congestion is present but severity has improved, patient remains afebrile, hemodynamic status is soft but stable, saturation 95% room air, labs reviewed sodium is 138 potassium 3.4 BUN/creatinine is 19/0.88 patient is being eval for cardiovascular services, echocardiogram revealed ejection fraction of 40 to 45% mild pulmonary hypertens ion 88-year-old male data predominantly obtained from the ice seller present at bedside and patient, patient is s/p right AKA for chronic infection, patient has mild dementia, patient lives by himself at home takes care of adult daily life activities, longstanding history of cough congestion is present but however got worse with nausea and vomiting and congestion, patient was extremely tired fatig ue and exhausted appetite has been poor and not tolerating very well. His past medical history significant for metastatic prostate cancer sees Dr. Gomes with conservative management, COPD, dyslipidemia, chronic anemia, neuropathy, GERD, chronic anemia, peripheral arterial disease. Patient is a every day smoker but quit in the remote past he used to smoke very heavily however is admitted chest x-ray significant for bilateral lower lobe infiltrate and small effusion CT scan of the chest negative for pulmonary embolism cardiomegaly interstitial edema bilateral pleural effusion, adjacent opacities cardiology has been consulted labs are significant for influenza A and B-, RSV as well as COVID negative as well. BNP is 3100, chemistry fairly within normal limit D-dimer elevated 6.13 CBC within normal limit patient on IV heparin due to A-fib RVR new onset Objective - Vital Signs Vital signs: Vital Signs Temp 98.1 F 08/23/24 08:11 Pulse 64 08/23/24 08:20 Resp 16 08/23/24 08:20 BP 98/60 08/23/24 08:11 Pulse Ox 95 08/23/24 08:11 FiO2 Intake & Output 08/22/24 08/23/24 08/23/24 18:59 06:59 18:59 Intake Total 470 20 190 Output Total 1300 975 300 Balance -830 -955 -110 Weight 50.5 kg Intake: IV 20 20 10 Invasive Line 2 20 20 10 Oral 450 180 Output: Urine 1300 975 300 Other: Voiding Method Urinal Urinal Urinal # Voids 1 # Bowel Movements 1 - Exam - Constitutional General appearance: average body habitus, disheveled - EENT Eyes: EOMI, PERRLA ENT: normal oropharynx Ears: bilateral: normal - Neck Carotids: bilateral: upstroke normal - Respiratory Respiratory: bilateral: diminished, dullness, rales - Cardiovascular Rhythm: irregularly irregular Heart sounds: normal: S1, S2 - Neurologic Neurologic: CNII-XII intact - Musculoskeletal Musculoskeletal: gait normal, generalized weakness, strength equal bilaterally - Psychiatric Psychiatric: A&O x's 3, appropriate affect - Labs CBC & Chem 7: 08/22/24 01:41 08/23/24 05:52 Labs: Abnormal Lab Results - Last 24 Hours (Table) 08/23/24 08/23/24 Range/Units 05:52 06:00 Potassium 3.4 L (3.5-5.1) mmol/L Urine Blood Large H (Negative) Urine RBC >182 H (0-5) /hpf Urine Bacteria Rare H (None) /hpf Hyaline Casts 9 H (0-2) /lpf Urine Mucus Rare H (None) /hpf Microbiology - Last 24 Hours (Table) 08/21/24 10:33 Blood Culture - Preliminary Blood Assessment and Plan Assessment: Bilateral basal pneumonia Bilateral pleural effusion likely combination of pneumonia as well as predominantly congestive heart failure Acute hypoxic respiratory failure Acute exacerbation of congestive heart failure Acute systolic heart failure with ejection fraction of 40% Mild pulmonary hypertension likely group 2 and 3 Likely acute on chronic diastolic heart failure New onset atrial fibrillation COPD Plan: Continue broad-spectrum antibiotics with Zithromax as well as Rocephin Follow-up oxygenation as well as radiographic studies and clinical parameters Continue bronchodilator hold on IV steroid Patient is on IV heparin for new onset atrial fibrillation. States being converted to direct oral anticoagulant Echocardiogram pending Gentle diuresis Further plan of care as per clinical response with the patient Time with Patient: Greater than 30
--- NOTE | 2024-08-23 11:46 | PN ---
PROGRESS NOTE HISTORY: This is a white cachectic man, came in atrial fibrillation with RVR, CHF, COPD. He was on IV heparin, IV Cardizem. Heart rates in the 80s. EKG atrial fibrillation, RVR. CT of the chest, moderate bilateral pleural effusions, pulmonary opacities. Hemoglobin is 13, platelets 248. Sodium 141, potassium 4.3, BUN 15, creatinine 1.03. Troponin negative x1. BNP 3100. He is talking and he does not like the food. He wants to get out of the hospital, go home. PHYSICAL EXAMINATION: GENERAL: He is in no acute distress. HEENT: Pupils equal, round, reactive. NECK: Supple. No JVD. CARDIOVASCULAR: S1, S2. LUNGS: Decreased breath sounds x4. HEMATOLOGY: Negative Homans. EXTREMITIES: He has a right AKA. NEUROLOGIC: Awake, alert, and oriented. ASSESSMENT: He has a new-onset atrial fibrillation with RVR, bilateral pleural effusions, peripheral artery disease, previous right AKA, dyslipidemia, dementia, cardiomyopathy, 40% to 45% aortic stenosis. Switched him from IV Lasix to oral Lasix. He is on beta-blockers, cardiac medications, and breathing treatments. PROGNOSIS: Guarded. Please see further orders. Possibly will go home soon. MMODL / IJN: [id number] /
[2024-08-23] MEDS ORDERED: Potassium Replacement Protocol 1 EACH MISC MISCELLANE PRN (14:56)
[2024-08-23] MEDS: POTASSIUM CHLORIDE ER 20 MEQ TAB.ER PO SCH (15:22)
[2024-08-23] MEDS: METOPROLOL TARTRATE 25 MG TAB PO SCH (15:23)
--- NOTE | 2024-08-24 01:20 | PN ---
PROGRESS NOTE Underweight. MMODL / IJN: [id number] /
[2024-08-24 07:35] LABS: Basophils % (A) 0 %; Eosinophils # (A) 0.4 k/uL (0-0.7); Eosinophils % (A) 5 %; HCT 42.5 % (39.0-53.0); HGB 13.2 gm/dL (13.0-17.5); Hypochromasia Slight; Lymphocytes # (A) 0.4 k/uL (1.0-4.8); Lymphocytes % (A) 5 %; MCH 28.8 pg (25.0-35.0); MCV 92.8 fL (80.0-100.0); Mean Platelet Volume 9.1; Monocytes # (A) 0.6 k/uL (0-1.0); Monocytes % (A) 7 %; Neutrophils # (A) 6.6 k/uL (1.3-7.7); Neutrophils % (A) 82 %; Platelet Count 189 k/uL (150-450); RBC 4.58 m/uL (4.30-5.90); RDW 15.2 % (11.5-15.5); WBC 8.1 k/uL (3.8-10.6)
[2024-08-24 07:36] LABS: ALT 12 U/L (4-49); AST 34 U/L (17-59); African American GFR (CKD) >90 (>60 ml/min/1.73 sqM); Albumin 2.8 g/dL (3.5-5.0); Alkaline Phosphatase 99 U/L (38-126); Anion Gap 3 mmol/L; Blood Urea Nitrogen 18 mg/dL (9-20); Calcium 8.3 mg/dL (8.4-10.2); Carbon Dioxide 29 mmol/L (22-30); Chloride 105 mmol/L (98-107); Glucose 84 mg/dL (74-99); Non-African American GFR(CKD) 79 (>60 ml/min/1.73 sqM); Potassium 3.7 mmol/L (3.5-5.1); Sodium 137 mmol/L (137-145); Total Bilirubin 0.5 mg/dL (0.2-1.3); Total Protein 4.9 g/dL (6.3-8.2)
[2024-08-24] MEDS: FUROSEMIDE 20 MG TAB PO SCH (08:25)
--- NOTE | 2024-08-24 11:57 | P.PN ---
Subjective HISTORY OF PRESENT ILLNESS: This is a 88-year-old male with a past medical history significant for peripheral arterial disease, right AKA, hyperlipidemia, and dementia. Patient does not follow with a varnish maker. We have been asked to see the patient in consultation for new onset A-fib. Patient examined at the bedside. Patient is somewhat confused at the time of examination. There is no family present to assist with history. The patient is not exactly sure why he came to the hospital. At the time of examination, the patient denies any chest pain or pressure. He denies any shortness of breath. Vital signs are stable. Patient was found to be in atrial fibrillation with RVR. Patient denies a history of atrial fibrillation. He denied feeling any palpitations. Patient was started on IV heparin and IV Cardizem. At the time of examination, the patient remains in atrial fibrillation with a heart rate in the 80s. DIAGNOSTICS: - EKG reveals atrial fibrillation with RVR - Chest CTA: Negative for pulmonary embolism. Cardiomegaly with moderate bilateral pleural effusions, adjacent pulmonary opacities could be to edema and atelectasis - Chest xray small bilateral pleural effusions with associated atelectasis - Laboratory data: WBC 8.8. Hemoglobin 13.0. Platelet count 248. D-dimer 6.13. Sodium 141. Potassium 4.3. BUN 15. Creatinine 1.03. Troponin negative x 1. proBNP 3100. - Current home cardiac medications include aspirin 81 mg daily and atorvastatin 40 mg daily - No previous echocardiogram, cardiac catheterization, or stress test available in EMR for review 08/23/2024 Patient examined this morning at the bedside. Patient currently denies chest pain or pressure. He denies shortness of breath. He remains in atrial fibrillation with heart rates in the 90s. Blood pressure 98/60. Echocardiogram completed revealing ejection fraction 40 to 45%, mild pulmonary hypertension, and moderate to severe aortic stenosis, mild to moderate tricuspid regurgitation 08/24/2024 Patient examined this morning at the bedside. Patient currently denies chest pain or pressure. He denies shortness of breath. Vital signs are stable. Telemetry reveals atrial fibrillation with controlled ventricular rate. PHYSICAL EXAM: VITAL SIGNS: Reviewed. GENERAL: Well-developed in no acute distress. HEENT: Head is normocephalic. Pupils are equal, round. Sclerae anicteric. Mucous membranes of the mouth are moist. Neck supple. No JVD or thyromegaly LUNGS: Respirations even and unlabored. Lungs essentially clear to auscultation bilaterally. HEART: Irregular rate and rhythm. S1 and S2 heard. Systolic murmur noted ABDOMEN: Soft. Nondistended. Nontender. EXTREMITIES: Normal range of motion. No clubbing or cyanosis. Right AKA. NEUROLOGIC: Awake and alert. 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 Chaudhari Nurse practitioner note has been reviewed by physician. Signing provider agrees with the documented findings, assessment, and plan of care documented by HOOP FLARING MACHINE OPERATOR HELPER as a scribe. Objective - Vital Signs Vital signs: Vital Signs Temp 98.2 F 08/23/24 20:25 Pulse 72 08/24/24 08:23 Resp 18 08/24/24 08:00 BP 106/66 08/24/24 08:00 Pulse Ox 96 08/24/24 08:10 FiO2 Intake & Output 08/23/24 08/24/24 08/24/24 18:59 06:59 18:59 Intake Total 560 20 364 Output Total 650 175 Balance -90 -155 364 Weight 53 kg Intake: IV 20 20 10 Invasive Line 2 20 20 10 Oral 540 354 Output: Urine 650 175 Other: Voiding Method Urinal Urinal Urinal - Labs CBC & Chem 7: 08/24/24 05:52 08/24/24 05:52 Labs: Abnormal Lab Results - Last 24 Hours (Table) 08/24/24 08/24/24 Range/Units 05:52 05:52 Lymphocytes # 0.4 L (1.0-4.8) k/uL Calcium 8.3 L (8.4-10.2) mg/dL Total Protein 4.9 L (6.3-8.2) g/dL Albumin 2.8 L (3.5-5.0) g/dL Microbiology - Last 24 Hours (Table) 08/21/24 10:33 Blood Culture - Preliminary Blood
--- NOTE | 2024-08-25 02:40 | PN ---
PROGRESS NOTE SUBJECTIVE: This is an 88-year-old white male, remains on Rocephin IV, DuoNeb treatments, Neurontin, Robaxin, Lopressor, Zofran, Protonix, wants to go home. Possibly discharge home in the next 24 to 48 hours. EKG, AFib with AVR. Chest CTA is negative for pulmonary embolism, possible marked perfusions. D-dimer is elevated at 6.13, creatinine 1.03, BUN 15, BNP 3100. Echo showed ejection fraction 40% to 45%, moderate tricuspid regurg, moderate aortic stenosis. OBJECTIVE: LUNGS: Transmitted upper sounds. CARDIOVASCULAR: S1, S2. NEUROLOGIC: Cranial nerves intact. ASSESSMENT: New onset atrial fibrillation with rapid ventricular rate, moderate bilateral pleural effusions, peripheral artery disease, hypertension, dementia, cardiomyopathy, and moderate to severe aortic stenosis. Continue current cardiac medicines. Stable for discharge. Possible send him home tomorrow. Stable at this time. MMODL / IJN: [id number] /
--- NOTE | 2024-08-25 08:57 | P.PN ---
Subjective Progress Note Date: 08/25/24 Principal diagnosis: Congestive heart failure likely acute on chronic systolic and diastolic heart failure echocardiogram reveals ejection fraction 40% Mild pulmonary hypertension group 2 and 3 Hypokalemia Bilateral basal pneumonia Bilateral pleural effusion likely combination of pneumonia as well as predominantly congestive heart failure Acute hypoxic respiratory failure Acute exacerbation of congestive heart failure Likely acute on chronic diastolic heart failure New onset atrial fibrillation COPD August 25, 2024, patient seen evaluate examined during rounds labs reviewed medications reviewed care plan discussed, patient awake and alert on 2 L oxygen breathing comfortably, denies any chest pain. Cough is predominantly present saturation is 97% on room air, blood pressure is 123/73, heart rate is 103, patient is afebrile. Labs from today reviewed CBC fairly within normal limit chemistry stable, urine Legionella Antigen has been negative so as the blood cultures have been negative. Patient doing well with bronchodilator along with direct acting oral anticoagulant and high intensity statins, patient remains on IV Rocephin continuation of home medications, Rocephin can be discontinued at the time of discharge recommend to follow-up as outpatient August 23, 2024, patient seen eval examined during rounds labs reviewed medications reviewed care plan discussed, ongoing cough congestion is present but severity has improved, patient remains afebrile, hemodynamic status is soft but stable, saturation 95% room air, labs reviewed sodium is 138 potassium 3.4 BUN/creatinine is 19/0.88 patient is being eval for cardiovascular services, echocardiogram revealed ejection fraction of 40 to 45% mild pulmonary hypertension 88-year-old male data predominantly obtained from the ad copy writer present at bedside and patient, patient is s/p right AKA for chronic infection, patient has mild dementia, patient lives by himself at home takes care of adult daily life activities, longstanding history of cough congestion is present but however got worse with nausea and vomiting and congestion, patient was extremely tired fatigue and exhausted appetite has been poor and not tolerating very well. His past medical history significant for metastatic prostate cancer sees Dr. Gomes with conservative management, COPD, dyslipidemia, chronic anemia, neuropathy, GERD, chronic anemia, peripheral arterial disease. Patient is a every day smoker but quit in the remote past he used to smoke very heavily however is admitted chest x-ray significant for bilateral lower lobe infiltrate and small effusion CT scan of the chest negative for pulmonary embolism cardiomegaly interstitial edema bilateral pleural effusion, adjacent opacities cardiology has been consulted labs are significant for influenza A and B-, RSV as well as COVID negative as well. BNP is 3100, chemistry fairly within normal limit D-dimer elevated 6.13 CBC within normal limit patient on IV heparin due to A-fib RVR new onset Objective - Vital Signs Vital signs: Vital Signs Temp 97.7 F 08/25/24 08:00 Pulse 84 08/25/24 08:05 Resp 18 08/25/24 08:00 BP 123/73 08/25/24 08:00 Pulse Ox 97 08/25/24 08:00 FiO2 Intake & Output 08/24/24 08/25/24 08/25/24 18:59 06:59 18:59 Intake Total 660 20 Output Total 200 Balance 460 20 Weight 54 kg Intake: IV 20 20 Invasive Line 2 20 20 Intake, IV Titration 50 Amount cefTRIAXone 2 gm In 50 Sodium Chloride 0.9% 50 ml @ 100 mls/hr IVPB Q24HR [facility] Rx#:[id number] Oral 590 Output: Urine 200 Other: Voiding Method Urinal Urinal # Voids 1 # Bowel Movements 1 - Exam - Constitutional General appearance: average body habitus, disheveled - EENT Eyes: EOMI, PERRLA ENT: normal oropharynx Ears: bilateral: normal - Neck Carotids: bilateral: upstroke normal - Respiratory Respiratory: bilateral: diminished, dullness, rales - Cardiovascular Rhythm: irregularly irregular Heart sounds: normal: S1, S2 - Neurologic Neurologic: CNII-XII intact - Musculoskeletal Musculoskeletal: gait normal, generalized weakness, strength equal bilaterally - Psychiatric Psychiatric: A&O x's 3, appropriate affect - Labs CBC & Chem 7: 08/24/24 05:52 08/24/24 05:52 Labs: Microbiology - Last 24 Hours (Table) 08/21/24 10:33 Blood Culture - Preliminary Blood Assessment and Plan Assessment: Bilateral basal pneumonia Bilateral pleural effusion likely combination of pneumonia as well as predominantly congestive heart failure Acute hypoxic respiratory failure Acute exacerbation of congestive heart failure Acute systolic heart failure with ejection fraction of 40% Mild pulmonary hypertension likely group 2 and 3 Likely acute on chronic diastolic heart failure New onset atrial fibrillation COPD Plan: Continue broad-spectrum antibiotics with Zithromax as well as Rocephin, at the time of discharge can be discontinued no need for oral antibiotics would recommend follow-up as outpatient Follow-up oxygenation as well as radiographic studies and clinical parameters oxygen is stable, monitor observe patient on room air Continue bronchodilator hold on IV steroid Patient is on direct oral anticoagulant Echocardiogram results reviewed Gentle diuresis Further plan of care as per clinical response with the patient Time with Patient: Greater than 30
[2024-08-25 10:57] VITALS: BP 138/85; RESP 17; TEMP 97.8
[2024-08-25 11:48] VITALS: PULSE 96
--- NOTE | 2024-08-25 11:51 | P.PN ---
Subjective HISTORY OF PRESENT ILLNESS: This is a 88-year-old male with a past medical history significant for peripheral arterial disease, right AKA, hyperlipidemia, and dementia. Patient does not follow with a installer apprentice. We have been asked to see the patient in consultation for new onset A-fib. Patient examined at the bedside. Patient is somewhat confused at the time of examination. There is no family present to assist with history. The patient is not exactly sure why he came to the hospital. At the time of examination, the patient denies any chest pain or pressure. He denies any shortness of breath. Vital signs are stable. Patient was found to be in atrial fibrillation with RVR. Patient denies a history of atrial fibrillation. He denied feeling any palpitations. Patient was started on IV heparin and IV Cardizem. At the time of examination, the patient remains in atrial fibrillation with a heart rate in the 80s. DIAGNOSTICS: - EKG reveals atrial fibrillation with RVR - Chest CTA: Negative for pulmonary embolism. Cardiomegaly with moderate bilateral pleural effusions, adjacent pulmonary opacities could be to edema and atelectasis - Chest xray small bilateral pleural effusions with associated atelectasis - Laboratory data: WBC 8.8. Hemoglobin 13.0. Platelet count 248. D-dimer 6.13. Sodium 141. Potassium 4.3. BUN 15. Creatinine 1.03. Troponin negative x 1. proBNP 3100. - Current home cardiac medications include aspirin 81 mg daily and atorvastatin 40 mg daily - No previous echocardiogram, cardiac catheterization, or stress test available in EMR for review 08/23/2024 Patient examined this morning at the bedside. Patient currently denies chest pain or pressure. He denies shortness of breath. He remains in atrial fibrillation with heart rates in the 90s. Blood pressure 98/60. Echocardiogram completed revealing ejection fraction 40 to 45%, mild pulmonary hypertension, and moderate to severe aortic stenosis, mild to moderate tricuspid regurgitation 08/24/2024 Patient examined this morning at the bedside. Patient currently denies chest pain or pressure. He denies shortness of breath. Vital signs are stable. Telemetry reveals atrial fibrillation with controlled ventricular rate. 08/25/2024 Patient examined this morning at the bedside. Patient currently denies chest pain or pressure. He denies shortness of breath. Vital signs are stable. Telemetry reveals atrial fibrillation with controlled ventricular rate. PHYSICAL EXAM: VITAL SIGNS: Reviewed. GENERAL: Well-developed in no acute distress. HEENT: Head is normocephalic. Pupils are equal, round. Sclerae anicteric. Mucous membranes of the mouth are moist. Neck supple. No JVD or thyromegaly LUNGS: Respirations even and unlabored. Lungs essentially clear to auscultation bilaterally. HEART: Irregular rate and rhythm. S1 and S2 heard. Systolic murmur noted ABDOMEN: Soft. Nondistended. Nontender. EXTREMITIES: Normal range of motion. No clubbing or cyanosis. Right AKA. NEUROLOGIC: Awake and alert. 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 Chaudhari We will sign off. Please reconsult if needed. Nurse practitioner note has been reviewed by physician. Signing provider agrees with the documented findings, assessment, and plan of care documented by RISK CONTROL DIRECTOR as a scribe. Objective - Vital Signs Vital signs: Vital Signs Temp 97.8 F 08/25/24 10:56 Pulse 96 08/25/24 11:48 Resp 17 08/25/24 10:56 BP 138/85 08/25/24 10:56 Pulse Ox 97 08/25/24 08:00 FiO2 Intake & Output 08/24/24 08/25/24 08/25/24 18:59 06:59 18:59 Intake Total 660 20 Output Total 200 Balance 460 20 Weight 54 kg Intake: IV 20 20 Invasive Line 2 20 20 Intake, IV Titration 50 Amount cefTRIAXone 2 gm In 50 Sodium Chloride 0.9% 50 ml @ 100 mls/hr IVPB Q24HR [facility] Rx#:[id number] Oral 590 Output: Urine 200 Other: Voiding Method Urinal Urinal # Voids 1 # Bowel Movements 1 - Labs CBC & Chem 7: 08/24/24 05:52 08/24/24 05:52 Labs: Microbiology - Last 24 Hours (Table) 08/21/24 10:33 Blood Culture - Preliminary Blood
--- NOTE | 2024-08-29 20:11 | P.DS ---
Providers Date of admission: 08/21/24 11:40 Attending physician: Jerel Burris Consults: 08/21/24 23:00 Consult Physician Routine Consulting Provider: Jerry Leon Consult Reason/Comments: cap Do you want consulting provider notified?: Yes Primary care physician: Stated None Hospital Course: Final Diagnosis New onset atrial fibrillation with rapid ventricular rate on admission Congestive heart failure likely acute on chronic systolic and diastolic heart failure echocardiogram reveals ejection fraction 40% Mild pulmonary hypertension Moderate to severe aortic stenosis. Hypokalemia Bilateral pleural effusion likely combination of pneumonia as well as predominantly congestive heart failure Acute hypoxic respiratory failure secondary to above Dementia COPD HX Right [id number] amputation History of peripheral arterial disease History of hyperlipidemia Discharge Disposition Patient stable for discharge home he has been started on Eliquis 2.5 mg twice a day as well as oral metoprolol heart rate is not controlled he does remain in atrial fibrillation. Patient will continue on oral Lasix daily. Patient to follow-up with highway worker Dr. Chaudhari on discharge, his tufter Dr. Leon. Patient to see his PCP for Caitlin Santos in 1 to 2 days. Hospital Course This is an 88-year-old male medical history significant for hyperlipidemia, dementia, peripheral arterial disease and a right [id number] amputation. Patient came in a new onset atrial fibrillation has not been eval by cardiology in the outpatient basis prior to this. Patient is really not sure why they came into the hospital. Chest x-ray on admission revealed COPD with bilateral lower lobe infiltrate and small effusion. He had an echocardiogram done which reveals an ejection fraction of 40 to 45% with mild pulmonary hypertension severe right atrial dilation, moderate to severe aortic stenosis and mild to moderate tricuspid regurgitation. Patient was found to have a D-dimer of 6.13. His white blood cell count has remained normal. His BUN and creatinine have remained within normal limits he had a negative troponin level a TSH of 2.630 and a proBNP of 3100 on admission. He was negative for influenza Legionella RSV and COVID. His urinalysis was negative for infection. Patient also had a chest CT angiography which shows no evidence for pulmonary embolism, there is cardiomegaly with bilateral moderate-sized pleural effusions likely related to CHF with adjacent pulmonary opacities could be due to the edema and atelectasis with infection possible in the proper clinical setting. 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 He was found to be in atrial fibrillation with rapid ventricular rate on admission started on IV heparin and IV Cardizem. His heart rate improved. Patient was started on oral Eliquis as well as metoprolol for rate control. He was weaned off the heparin and Cardizem. Patient was also diuresed. His mentation has been waxing and waning consistent with his known dementia at baseline. Cardiology has cleared the patient as well as pulmonary services. He will follow-up with his PCP on discharge as well as the above-mentioned recommendations. What Please see medication reconciliation for a list of current medications. Thank you for allowing us to participate in the care of this patient. The impression and plan of care has been dictated by Susan Henderson, Nurse Practitioner as directed. Dr. Rekha MD I have performed a history and physical examination and medical decision making of this patient, discussed the same with the dictator, and agree with the dictators assessment and plan as written, documented as a scribe. Based on total visit time, I have performed more than 50% of this visit. Patient Condition at Discharge: Fair Plan - Discharge Summary Discharge Rx Participant: Yes New Discharge Prescriptions: New Apixaban [Eliquis] 2.5 mg PO BID #60 tab Furosemide [Lasix] 20 mg PO DAILY #30 tab Gabapentin [Neurontin] 100 mg PO BID 3 Days #6 cap Metoprolol Tartrate [Lopressor] 25 mg PO TID #90 tab Continue Urea Cream 40% 1 applic TOPICAL DAILY PRN PRN Reason: Itching Atorvastatin [Lipitor] 40 mg PO DAILY@1200 Budesonide/Formoterol Fumarate [Symbicort 160-4.5 Mcg Inhaler] 2 puff INHALATION RT-DAILY Ferrous Sulfate [Iron (65 MG Elemental)] 325 mg PO DAILY@1200 Ketoconazole 2% Shampoo [Nizoral] 1 applic TOPICAL Q7D Pantoprazole [Protonix] 40 mg PO DAILY Albuterol Inhaler [Ventolin Hfa Inhaler] 1 puff INHALATION RT-Q4H PRN PRN Reason: Shortness Of Breath Docusate [Colace] 100 mg PO BID Triamcinolone 0.1% Cream [Kenalog 0.1% Cream] 1 applicatio TOPICAL DIRECTED PRN PRN Reason: Dry Skin Discontinued Aspirin [F[place]th Aspirin EC] 81 mg PO DAILY Gabapentin [Neurontin] 100 mg PO BID methocarbamoL [Robaxin] 500 mg PO BID Discharge Medication List Albuterol Inhaler [Ventolin Hfa Inhaler] 1 puff INHALATION RT-Q4H PRN 08/21/24 [History] Atorvastatin [Lipitor] 40 mg PO DAILY@1200 08/21/24 [History] Budesonide/Formoterol Fumarate [Symbicort 160-4.5 Mcg Inhaler] 2 puff INHALATION RT-DAILY 08/21/24 [History] Docusate [Colace] 100 mg PO BID 08/21/24 [History] Ferrous Sulfate [Iron (65 MG Elemental)] 325 mg PO DAILY@1200 08/21/24 [History] Ketoconazole 2% Shampoo [Nizoral] 1 applic TOPICAL Q7D 08/21/24 [History] Pantoprazole [Protonix] 40 mg PO DAILY 08/21/24 [History] Triamcinolone 0.1% Cream [Kenalog 0.1% Cream] 1 applicatio TOPICAL DIRECTED PRN 08/21/24 [History] Urea Cream 40% 1 applic TOPICAL DAILY PRN 08/21/24 [History] Apixaban [Eliquis] 2.5 mg PO BID #60 tab 08/25/24 [Rx] Furosemide [Lasix] 20 mg PO DAILY #30 tab 08/25/24 [Rx] Gabapentin [Neurontin] 100 mg PO BID 3 Days #6 cap 08/25/24 [Rx] Metoprolol Tartrate [Lopressor] 25 mg PO TID #90 tab 08/25/24 [Rx] Follow up Appointment(s)/Referral(s): Jerry Leon MD [STAFF PHYSICIAN] - 1 Week Enrique Chaudhari MD [STAFF PHYSICIAN] - 1 Week Caitlin Santos FNPBC [REFERRING] - 1-2 Days [facility], [NON-STAFF] - As Needed ([facility]) Ambulatory/Diagnostic Orders: Basic Metabolic Panel [LAB.AMB] Time Frame: 4 Days, Location: None Selected Complete Blood Count w/diff [LAB.AMB] Location: None Selected Patient Instructions/Handouts: A-fib (Atrial Fibrillation) (DC) Activity/Diet/Wound Care/Special Instructions: Continue on eliquis twice a day. This is a blood thinner that will be taken morning and night. It has been started because of the atrial fibrillation. Do not skip any doses of this. Atrial Fibrillation can cause stroke. The blood thinner is given to prevent this complication. Continue on metoprolol three times a day as prescribed. This is for heart rate control. Follow up with your highway worker Dr. Chaudhari in the office in 1 to 2 weeks. Follow up with your primary provider Caitlin Santos in 1 to 2 days no discharge. Discharge Disposition: HOME WITH HOME HEALTH SERVICES
--- NOTE | 2024-09-07 13:03 | CDI ---
Documentation Clarification Form Date: 09/07/2024 12:35:08 PM From: Lynne Yoo Admit Date: 08/21/2024 11:40:00 AM Patient Name: Daniel Ortiz Visit Number: [id number] Discharge Date: 08/25/2024 03:42:00 PM ATTENTION: The Clinical Documentation Specialists (CDI) and [facility] Coding Staff appreciate your assistance in clarifying documentation. Please respond to the clarification below the line at the bottom and electronically sign. The CDI & [facility] Coding staff will review the response and follow-up if needed. Please note: Queries are made part of the Legal Health Record. If you have any questions, please contact the author of this message via ITS. 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 For each diagnosis, documentation must be clear to determine if the condition was present at the time of the patients inpatient admission or developed during the hospital stay. Additional clarification regarding the [insert diagnosis] is requested. History/Risk Factors: New onset atrial fib, Aortic stenosis/tricuspid regurgitation Clinical Indicators: EF 40%, BNP 3100 08/22, 08/21 CXR small effusion and mild cardiomegaly. 08/22 CXR bilateral pleural effusion, CT chest Cardiomegaly with moderate pleural effusions likely related to CHF. Treatment: Lasix PO 20 mg. Definition of Present on Admission (POA): A diagnosis present at the time the order for admission to inpatient status was written. 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 [ ] N = No, the condition was not present at the time of the order for inpatient admission. [ ] W = Clinically undetermined if the condition was present at the time of the order for inpatient admission. MTDD
--- NOTE | 2024-09-09 13:43 | PN ---
PROGRESS NOTE Pneumonia present on admission. MMODL / IJN: [id number] /
--- NOTE | 2024-09-12 11:45 | CDI ---
Documentation Clarification Form Date:10/09/24 From: Lynne Yoo Admit Date: 08/21/2024 11:40:00 AM Patient Name: Daniel Ortiz Visit Number: [id number] Discharge Date: 08/25/2024 03:42:00 PM ATTENTION: The Clinical Documentation Specialists (CDI) and [facility] Coding Staff appreciate your assistance in clarifying documentation. Please respond to the clarification below the line at the bottom and electronically sign. The CDI & [facility] Coding staff will review the response and follow-up if needed. Please note: Queries are made part of the Legal Health Record. If you have any questions, please contact the author of this message via ITS. 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 For each diagnosis, documentation must be clear to determine if the condition was present at the time of the patients inpatient admission or developed during the hospital stay. Additional clarification regarding the [insert diagnosis] is requested. History/Risk Factors: New onset atrial fib, Aortic stenosis/tricuspid regurgitation Clinical Indicators: EF 40%, BNP 3100 08/22, 08/21 CXR small effusion and mild cardiomegaly. 08/22 CXR bilateral pleural effusion, CT chest Cardiomegaly with moderate pleural effusions likely related to CHF. Treatment: Lasix PO 20 mg. Definition of Present on Admission (POA): A diagnosis present at the time the order for admission to inpatient status was written. 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 [ ] N = No, the condition was not present at the time of the order for inpatient admission. [ ] W = Clinically undetermined if the condition was present at the time of the order for inpatient admission. MTDD
--- NOTE | 2024-09-26 12:11 | CDI ---
Documentation Clarification Form Date: 09/07/2024 12:35:08 PM From: Lynne Yoo Admit Date: 08/21/2024 11:40:00 AM Patient Name: Daniel Ortiz Visit Number: [id number] Discharge Date: 08/25/2024 03:42:00 PM ATTENTION: The Clinical Documentation Specialists (CDI) and [facility] Coding Staff appreciate your assistance in clarifying documentation. Please respond to the clarification below the line at the bottom and electronically sign. The CDI & [facility] Coding staff will review the response and follow-up if needed. Please note: Queries are made part of the Legal Health Record. If you have any questions, please contact the author of this message via ITS. 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 For each diagnosis, documentation must be clear to determine if the condition was present at the time of the patients inpatient admission or developed during the hospital stay. Additional clarification regarding the [insert diagnosis] is requested. History/Risk Factors: New onset atrial fib, Aortic stenosis/tricuspid regurgitation Clinical Indicators: EF 40%, BNP 3100 08/22, 08/21 CXR small effusion and mild cardiomegaly. 08/22 CXR bilateral pleural effusion, CT chest Cardiomegaly with moderate pleural effusions likely related to CHF. Treatment: Lasix PO 20 mg. Definition of Present on Admission (POA): A diagnosis present at the time the order for admission to inpatient status was written. 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 [ ] N = No, the condition was not present at the time of the order for inpatient admission. [ ] W = Clinically undetermined if the condition was present at the time of the order for inpatient admission. MTDD
--- NOTE | 2024-10-09 21:10 | PN ---
PROGRESS NOTE Chronic systolic diastolic heart failure, present on admission. MMODL / IJN: [id number] /
== END 2024-08-25 15:42 | disposition home health service (06) | DRG 193 ==
LOC: EC 07:41 → 3SCARD 11:40 → 3NCARDOBS 08-23 14:55 → 3SCARD 08-23 14:55
PROVIDERS: ADMIT Family Medicine; ATTEND Family Medicine
DX: J18.9 Pneumonia, unspecified organism (principal); J96.01 Acute respiratory failure with hypoxia; J44.0 Chronic obstructive pulmonary disease with (acute) lower respiratory infection; J98.11 Atelectasis; R64 Cachexia; I48.20 Chronic atrial fibrillation, unspecified; Z68.1 Body mass index [BMI] 19.9 or less, adult; C79.9 Secondary malignant neoplasm of unspecified site; I42.9 Cardiomyopathy, unspecified; I50.42 Chronic combined systolic (congestive) and diastolic (congestive) heart failure; I11.0 Hypertensive heart disease with heart failure; F03.A0 Unspecified dementia, mild, without behavioral disturbance, psychotic disturbance, mood disturbance, and anxiety; I73.9 Peripheral vascular disease, unspecified; I27.22 Pulmonary hypertension due to left heart disease; I27.23 Pulmonary hypertension due to lung diseases and hypoxia; I08.2 Rheumatic disorders of both aortic and tricuspid valves; C61 Malignant neoplasm of prostate; G62.9 Polyneuropathy, unspecified; I48.91 Unspecified atrial fibrillation; R63.6 Underweight; E78.5 Hyperlipidemia, unspecified; E87.6 Hypokalemia; Z89.611 Acquired absence of right leg above knee; Z79.51 Long term (current) use of inhaled steroids; Z79.82 Long term (current) use of aspirin; Z79.899 Other long term (current) drug therapy; Z87.891 Personal history of nicotine dependence; Z20.822 Contact with and (suspected) exposure to COVID-19; Z28.21 Immunization not carried out because of patient refusal; Z60.2 Problems related to living alone
CPT/HCPCS: 36415; 71045; 71046; 71275; 80048; 80053; 81001; 83690; 83735; 83880; 84443; 84484; 85025; 85379; 85610; 85730; 87040; 87449; 87636; 93005; 93306; 94640; 94760; 96361; 96365; 96366; 96368; 96375; 99291

== ENCOUNTER 2024-09-07 13:50 | Emergency (ER) | payer MEDICARE ==
[2024-09-07 14:07] VITALS: RESP 16
--- NOTE | 2024-09-07 14:16 | ED ---
General Adult HPI - General Chief complaint: Nausea/Vomiting/Diarrhea Stated complaint: GI issues Time Seen by Provider: 09/07/24 14:00 Source: patient, EMS, RN notes reviewed, old records reviewed Mode of arrival: EMS - History of Present Illness Initial comments: This an 88-year-old male who presents to the emergency department complaining of nausea vomiting and diarrhea. Patient states he left the hospital about 13 days ago and ever since then he has had difficulty keeping food down and has been having quite a bit of diarrhea. Patient did not realize it was 13 days ago he initially thought was for 5 days ago. Patient states last time he was here he was here for atrial fibrillation new onset. Patient also states he has noticed his stool has been a little darker than normal and he was started on Eliquis. Patient denies any fever chills. Patient has chest pain difficulty breathing shortness of breath. Patient denies any abdominal pain. Patient states he does feel weaker since has been home. - Related Data Home Medications Medication Instructions Recorded Confirmed Albuterol Inhaler [Ventolin Hfa 1 puff INHALATION RT-Q4H PRN 08/21/24 09/07/24 Inhaler] Atorvastatin [Lipitor] 40 mg PO DAILY@1200 08/21/24 09/07/24 Budesonide/Formoterol Fumarate 2 puff INHALATION RT-DAILY 08/21/24 09/07/24 [Symbicort 160-4.5 Mcg Inhaler] Docusate [Colace] 100 mg PO BID 08/21/24 09/07/24 Ferrous Sulfate [Iron (65 MG 325 mg PO DAILY@1200 08/21/24 09/07/24 Elemental)] Ketoconazole 2% Shampoo [Nizoral] 1 applic TOPICAL WEEKLY 08/21/24 09/07/24 Pantoprazole [Protonix] 40 mg PO DAILY 08/21/24 09/07/24 Triamcinolone 0.1% Cream [Kenalog 1 applic TOPICAL DIRECTED PRN 08/21/24 09/07/24 0.1% Cream] Urea Cream 40% 1 applic TOPICAL DAILY PRN 08/21/24 09/07/24 Furosemide [Lasix] 20 mg PO DAILY@1200 09/07/24 09/07/24 Metoprolol Tartrate [Lopressor] 25 mg PO BID 09/07/24 09/07/24 Previous Rx's Medication Instructions Recorded Apixaban [Eliquis] 2.5 mg PO BID #60 tab 08/25/24 Gabapentin [Neurontin] 100 mg PO BID 3 Days #6 cap 08/25/24 Allergies Allergy/AdvReac Type Severity Reaction Status Date / Time naproxen [From Aleve] AdvReac excessive Verified 09/07/24 16:50 bleeding Review of Systems ROS Statement: Those systems with pertinent positive or pertinent negative responses have been documented in the HPI. ROS Other: All systems not noted in ROS Statement are negative. Past Medical History Past Medical History: COPD, Dementia Additional Past Medical History / Comment(s): PAD, anemia History of Any Multi-Drug Resistant Organisms: None Reported Additional Past Surgical History / Comment(s): Right above the knee amputation Past Psychological History: No Psychological Hx Reported Smoking Status: Former smoker Past Alcohol Use History: Daily Past Drug Use History: None Reported General Exam - General Exam Comments Initial Comments: GENERAL: Patient is well-developed and well-nourished. Patient is nontoxic and well- hydrated and is in distress. ENT: Neck is soft and supple. No significant lymphadenopathy is noted. Oropharynx is clear. Moist mucous membranes. Neck has full range of motion without eliciting any pain. EYES: The sclera were anicteric and conjunctiva were pink and moist. Extraocular movements were intact and pupils were equal round and reactive to light. Eyelids were unremarkable. PULMONARY: Unlabored respirations. Good breath sounds bilaterally. No audible rales rhonchi or wheezing was noted. CARDIOVASCULAR: There is a regular rate and rhythm without any murmurs gallops or rubs. ABDOMEN: Soft and nontender with normal bowel sounds. SKIN: Skin is clear with no lesions or rashes and otherwise unremarkable. NEUROLOGIC: Patient is alert and oriented x3. Cranial nerves II through XII are grossly intact. Motor and sensory are also intact. Normal speech, volume and content. Symmetrical smile. MUSCULOSKELETAL: Normal extremities with adequate strength and full range of motion. LYMPHATICS: No significant lymphadenopathy is noted PSYCHIATRIC: Normal psychiatric evaluation. Course Vital Signs 09/07/24 09/07/24 13:54 21:14 Temperature 97.6 F 98.8 F Pulse Rate 91 79 Respiratory 16 16 Rate Blood Pressure 145/95 116/68 O2 Sat by Pulse 97 96 Oximetry Medical Decision Making - Medical Decision Making Was pt. sent in by a medical professional or institution ([facility], LEAD SOFTWARE TEST ENGINEER, urgent care, hospital, or skilled nursing...) When possible be specific @ -No Did you speak to anyone other than the patient for history (EMS, parent, family, police, friend...)? What history was obtained from this source @ -No Did you review nursing and triage notes (agree or disagree)? Why? @ -I reviewed and agree with nursing and triage notes Were old charts reviewed (outside hosp., previous admission, EMS record, old EKG, old radiological studies, urgent care reports/EKG's, skilled nursing records)? Report findings @ -No old charts were reviewed Differential Diagnosis? @ -Gastritis, gastroenteritis, viral syndrome, colitis, EKG interpreted by me (3pts min.). @ -As above X-rays interpreted by me (1pt min.). @ -None done CT interpreted by me (1pt min.). @ -None done U/S interpreted by me (1pt. min.). @ -None done What testing was considered but not performed or refused? (CT, X-rays, U/S, labs)? Why? @ -None What meds were considered but not given or refused? Why? @ -None Did you discuss the management of the patient with other professionals (professionals i.e. [facility], LEAD SOFTWARE TEST ENGINEER, lab, RT, psych nurse, social services designee, dairy clerk, teacher, employment security officer, casey saw operator)? Give summary @ -No Was smoking cessation discussed for >3mins.? @ -No Was critical care preformed (if so, how long)? @ -No Were there social determinants of health that impacted care today? How? (Homelessness, low income, unemployed, alcoholism, drug addiction, transportation, low edu. Level, literacy, decrease access to med. care, fdc, rehab)? @ -No Was there de-escalation of care discussed even if they declined (Discuss DNR or withdrawal of care, Hospice)? DNR status @ -No What co-morbidities impacted this encounter? (DM, HTN, Smoking, COPD, CAD, Cancer, CVA, ARF, Chemo, Hep., AIDS, mental health diagnosis, sleep apnea, morb id obesity)? @ -None Was patient admitted / discharged? Hospital course, mention meds given and rout e, prescriptions, significant lab abnormalities, going to OR and other pertinent info. @ -Patient was tolerating foods and fluids in the emergency department patient insisted that normally this was making him have diarrhea. Patient was given Lomotil and Zofran in the emergency department. Patient's electrolytes and lab work was otherwise normal. Patient was denying any abdominal pain. Patient will be discharged home with Lomotil and Zofran. The patient stated that he has been having symptoms since he left the hospital. According to the son its only been 2 or 3 days of vomiting and diarrhea mostly diarrhea. Patient has not taken any dryp-fqn-imtpzrp medicine to slow the diarrhea down and according to the son he was eating fine earlier in the week. Undiagnosed new problem with uncertain prognosis? @ -No Drug Therapy requiring intensive monitoring for toxicity (Heparin, Nitro, Insuli n, Cardizem)? @ -No Were any procedures done? @ -No Diagnosis/symptom? @ -Gastroenteritis Acute, or Chronic, or Acute on Chronic? @ -Acute Uncomplicated (without systemic symptoms) or Complicated (systemic symptoms)? @ -Complicated Side effects of treatment? @ -No Exacerbation, Progression, or Severe Exacerbation? @ -No Poses a threat to life or bodily function? How? (Chest pain, USA, NM, pneumonia, PE, COPD, DKA, ARF, appy, cholecystitis, CVA, Diverticulitis, Homicidal, Suicidal, threat to staff... and all critical care pts) @ -No - Lab Data Result diagrams: 09/07/24 14:41 09/07/24 16:58 Lab Results 09/07/24 09/07/24 09/07/24 Range/Units 14:41 14:41 16:58 WBC 9.5 (3.8-10.6) k/uL RBC 4.02 L (4.30-5.90) m/uL Hgb 11.8 L (13.0-17.5) gm/dL Hct 37.6 L (39.0-53.0) % MCV 93.6 (80.0-100.0) fL MCH 29.4 (25.0-35.0) pg MCHC 31.4 (31.0-37.0) g/dL RDW 15.9 H (11.5-15.5) % Plt Count 243 (150-450) k/uL MPV 7.3 Neutrophils % 87 % Lymphocytes % 5 % Monocytes % 5 % Eosinophils % 1 % Basophils % 0 % Neutrophils # 8.3 H (1.3-7.7) k/uL Lymphocytes # 0.5 L (1.0-4.8) k/uL Monocytes # 0.5 (0-1.0) k/uL Eosinophils # 0.1 (0-0.7) k/uL Basophils # 0.0 (0-0.2) k/uL Hypochromasia Slight Sodium 138 (137-145) mmol/L Potassium 4.0 (3.5-5.1) mmol/L Chloride 105 (98-107) mmol/L Carbon Dioxide 29 (22-30) mmol/L Anion Gap 4 mmol/L BUN 23 H (9-20) mg/dL Creatinine 0.93 (0.66-1.25) mg/dL Est GFR (CKD-EPI)AfAm 85 (>60 ml/min/1.73 sqM) Est GFR (CKD-EPI)NonAf 73 (>60 ml/min/1.73 sqM) Glucose 98 (74-99) mg/dL Plasma Lactic Acid Cam 1.7 (0.7-2.0) mmol/L Calcium 8.0 L (8.4-10.2) mg/dL Magnesium 1.9 (1.6-2.3) mg/dL Total Bilirubin 0.4 (0.2-1.3) mg/dL AST 29 (17-59) U/L ALT 19 (4-49) U/L Alkaline Phosphatase 113 (38-126) U/L Total Protein 5.1 L (6.3-8.2) g/dL Albumin 2.8 L (3.5-5.0) g/dL Amylase 48 (30-110) U/L Lipase 95 (23-300) U/L Disposition Clinical Impression: Gastroenteritis Disposition: HOME SELF-CARE Condition: Good Instructions (If sedation given, give patient instructions): Gastroenteritis (ED) Is patient prescribed a controlled substance at d/c from ED?: No Referrals: None,Stated [REFERRING] - 1-2 days Time of Disposition: 20:34
[2024-09-07] MEDS: SODIUM CHLORIDE 0.9% 1,000 ML IV STA (14:44)
[2024-09-07 14:57] LABS: Basophils % (A) 0 %; Eosinophils # (A) 0.1 k/uL (0-0.7); Eosinophils % (A) 1 %; HCT 37.6 % (39.0-53.0); HGB 11.8 gm/dL (13.0-17.5); Hypochromasia Slight; Lymphocytes # (A) 0.5 k/uL (1.0-4.8); Lymphocytes % (A) 5 %; MCH 29.4 pg (25.0-35.0); MCHC 31.4 g/dL (31.0-37.0); MCV 93.6 fL (80.0-100.0); Mean Platelet Volume 7.3; Monocytes # (A) 0.5 k/uL (0-1.0); Monocytes % (A) 5 %; Neutrophils # (A) 8.3 k/uL (1.3-7.7); Neutrophils % (A) 87 %; Platelet Count 243 k/uL (150-450); RBC 4.02 m/uL (4.30-5.90); RDW 15.9 % (11.5-15.5); WBC 9.5 k/uL (3.8-10.6)
--- NOTE | 2024-09-07 15:17 | XR ---
EXAMINATION TYPE: XR chest 2V DATE OF EXAM: 09/07/2024 3:09 PM COMPARISON: Chest radiographs from 08/22/2024, CT chest 08/21/2024 TECHNIQUE: XR chest 2V Frontal and lateral views of the chest. CLINICAL INDICATION:Male, 88 years old with history of Difficulty breathing ; FINDINGS: Lungs/Pleura: Small layering bilateral pleural effusions. No focal consolidation. Hyperinflation. No pneumothorax. Pulmonary vascularity: Unremarkable. Heart/mediastinum: Cardiomediastinal silhouette is prominent in size and stable. Atherosclerotic gagan cifications are seen in the aorta. Musculoskeletal: No acute osseous pathology. IMPRESSION: 1. Small bilateral pleural effusions. 2. COPD changes. [facility], , 09/07/2024 3:15 PM
[2024-09-07 17:55] LABS: ALT 19 U/L (4-49); AST 29 U/L (17-59); African American GFR (CKD) 85 (>60 ml/min/1.73 sqM); Albumin 2.8 g/dL (3.5-5.0); Alkaline Phosphatase 113 U/L (38-126); Amylase 48 U/L (30-110); Anion Gap 4 mmol/L; Blood Urea Nitrogen 23 mg/dL (9-20); Carbon Dioxide 29 mmol/L (22-30); Chloride 105 mmol/L (98-107); Glucose 98 mg/dL (74-99); Lipase 95 U/L (23-300); Magnesium 1.9 mg/dL (1.6-2.3); Non-African American GFR(CKD) 73 (>60 ml/min/1.73 sqM); Sodium 138 mmol/L (137-145); Total Bilirubin 0.4 mg/dL (0.2-1.3); Total Protein 5.1 g/dL (6.3-8.2)
[2024-09-07] MEDS: DIPHENOX-ATROP 2.5-0.025 MG 1 EACH TAB PO STA (21:11)
[2024-09-07] MEDS: ONDANSETRON 4 MG ODT STARTER PACK 2 TAB BTL PO STA (21:12)
[2024-09-07] MEDS: ONDANSETRON 4 MG/2 ML VIAL IVP STA (21:13)
[2024-09-07] MEDS: DIPHENOX-ATROP STARTER PACK 8 TAB BTL PO STA (21:13)
[2024-09-07 21:15] VITALS: BP 116/68; PULSE 79; TEMP 98.8
== END 2024-09-07 21:47 | disposition home or self-care (01) ==
LOC: EC 13:50
DX: K52.9 Noninfective gastroenteritis and colitis, unspecified (principal); Z87.891 Personal history of nicotine dependence; Z88.6 Allergy status to analgesic agent
CPT/HCPCS: 36415; 80053; 82150; 83605; 83690; 83735; 85025; 71046; 99285; 96374; 96361; J2405; S0119